=== PATIENT | male | born 1935 | race Caucasian/White ===

== ENCOUNTER 2017-04-27 19:25 | Inpatient (IN) ==
[2017-04-27] MEDS ORDERED: FUROSEMIDE 100 MG/10 ML VIAL IV STA (19:35)
[2017-04-27] MEDS ORDERED: FUROSEMIDE 100 MG/10 ML VIAL ONE (19:37)
[2017-04-27 19:48] LABS: Basophils # 0.1 10*3/uL (0.0-0.2); Basophils % 0.6 % (0.0-0.8); Eosinophils # 0.1 10*3/uL (0.0-0.87); Eosinophils % 0.7 % (0.00-10.9); Hematocrit 38.1 VOL% (42.0-52.0); Hemoglobin 12.4 GM/DL (14.0-18.0); Immature Granulocytes % 0.7 %; Lymphocytes # 1.8 10*3/uL (1.4-4.0); Lymphocytes % 12.4 % (21.2-54.2); Mean Corpuscular HGB Conc 32.5 GM/DL (32-36); Mean Corpuscular Hemoglobin 29 PG (27-34); Mean Corpuscular Volume 88.6 FL (87-102); Mean Platelet Volume 9.5 FL (9.6-12.0); Monocytes # 0.7 10*3/uL (0.11-0.8); Monocytes % 4.8 % (1.7-12.7); Neutrophils # 11.7 10*3/uL (1.4-7.4); Neutrophils % 80.8 % (38.7-73.9); Platelet Count 226 T/CUMM (130-400); Red Cell Distribution Width 13.6 % (9.3-17.3); White Blood Count 14.5 T/CUMM (4-12)
--- NOTE | 2017-04-27 19:51 | XRay Report ---
Portable chest Date: 04/27/2017 Clinical history: Shortness of breath Comparison: 05/28/2015 Technique: Portable AP sitting chest Findings: The heart is borderline in size with prior median sternotomy. Chronic scarring in the lungs with progressive diffuse parenchymal findings especially at the lung bases. Stable mediastinum with degenerative changes. Impression: Status post median sternotomy with chronic scarring. Progressive atelectasis/edema/infiltration especially at the lung bases. PROCEDURE INTERPRETED AT [facility] DEPARTMENT OF RADIOLOGY Final Report Signed by: Dr. Annel Moore
[2017-04-27] MEDS ORDERED: ALBUTEROL 2.5 MG/3 ML NEB RESP TX SCH (20:00)
[2017-04-27] MEDS ORDERED: NITROGLYCERIN DRIP 50 MG/250 ML BOTTLE IV SCH (20:00)
[2017-04-27 20:12] LABS: Apearance,Urine CLEAR (Clear); Bacteria,Urine Occasional /HPF (Few); Bilirubin,Urine Negative (Negative); Blood, Urine Negative (Negative); Glucose,Urine (UA) >=500 mg/dL (Negative); Hyaline Casts,Urine 1 /LPF (0-3); Ketones,Urine Negative (Negative); Mucus,Urine Occasional /LPF (Occasional); Nitrite,Urine Negative (Negative); Protein,Urine 30 MG/DL; RBC,Urine 1 /HPF (0-4); Urine Color Yellow (Yellow); Urine Specific Gravity 1.021 (1.001-1.035); Urine Urobilinogen < 2.0 EU/DL (0.2-1.0); WBC,Urine 1 /HPF (0-6)
[2017-04-27 20:16] LABS: Albumin 3.2 G/DL (3.4-5.0); Bilirubin,Total 0.7 MG/DL (0.2-1.0); Calcium 9.3 MG/DL (8.5-10.1); Magnesium 2.3 MG/DL (1.8-2.4); Osmolality,Calculated 295.4 MOS/KG (273-304); Potassium 5.3 MMOL/L (3.5-5.1); Total Protein 6.6 G/DL (6.4-8.3)
[2017-04-27 20:25] LABS: Troponin I Only 0.054 NG/ML (0.00-0.045)
--- NOTE | 2017-04-27 20:56 | Emergency Department Note ---
I, Aby Byrnes, am scribing for, and in the presence of, Bryan Rivas MD 19: 43. IRob Kevin Lee, MD, personally performed the services described in this documentation, ascribed by Aby Byrnes in my presence, and it is both accurate and complete . 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 EMS states pt was seen at [facility] this morning, instead of brought to [facility], for SOB and diaphoresis. EMS notes his BP improved from 234/110 and tachycardic in 120s to 160/60 and 97 O2 sat of 97 on 2L. Pt has developed a cough since arrival of EMS. 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 Pt states he suddenly started having SOB and "sweating like a mule." Pt's BP is 110/88 in ED with tachycardic of 110. PMHx of NIDDM. Pt's CXR at [facility] states as is: 1. Pulmonary venous hypertensive changes could be considered. 2. The appearance of the lung parenchyma suggests little change in comparison. Nonspecific increase in interstitial markings is noted within the lung bases. Onset (ago): hour(s) Consistency: constant Severity: mild, moderate Severity scale (1-10): 4 Quality: fullness Allergies/Adverse Reactions: Allergies Allergy/AdvReac Type Severity Reaction Status Date / Time lorazepam [From Ativan] Allergy Mild Hallucinati Verified 07/01/15 09:42 ng Penicillins Allergy Mild Swelling Verified 07/01/15 09:42 of Lip/Tongue/Throat Home Medications: Home Medications Medication Instructions Recorded Confirmed Type Metformin HCl [Metformin HCl ER] 1,000 mg PO BIDAC 03/04/15 04/27/17 History Aspirin [Ecotrin] 325 mg PO DAILY #1 tablet. 03/26/15 04/27/17 Rx Nitroglycerin [Nitroglycerin SL 0.4 mg SL PRN PRN #25 tab.subl 03/26/15 Rx Tab] Sertraline [Zoloft] 50 mg PO BEDTIME tablet 03/26/15 04/27/17 Rx Multivitamin [Multivitamins] 1 tablet PO DAILY 04/13/15 04/27/17 History Furosemide Tab [Lasix Tab] 40 mg PO DAILY 05/14/15 04/27/17 History Potassium Chloride Cap/Tab [K Dur] 20 meq PO DAILY 05/14/15 04/27/17 History Carvedilol [Coreg] 3.125 mg PO 0800,1700 06/26/15 04/27/17 History Clopidogrel [Plavix] 75 mg PO QOTHER DAY 06/26/15 04/27/17 History Acetaminophen Tab [Tylenol Tab] 1,000 mg PO Q4H 04/27/17 04/27/17 History Acetaminophen [Acetaminophen ER 650 mg PO TID 04/27/17 04/27/17 History Tab] Albuterol Neb [Proventil Neb] 2.5 mg RESP TX Q12H PRN 04/27/17 04/27/17 History Ascorbic Acid 500 mg PO DAILY 04/27/17 04/27/17 History Atorvastatin [Lipitor] 10 mg PO BEDTIME 04/27/17 04/27/17 History Captopril [Captopril] 6.25 mg PO BID 04/27/17 04/27/17 History Gabapentin [Gabapentin] 100 mg PO TID 04/27/17 04/27/17 History HYDROcodone/ACETAMIN 5-325 [[place] 1 tablet PO Q4H PRN 04/27/17 04/27/17 History 5-325] Insulin Glargine [Lantus] 36 unit SUBCUT 0600 04/27/17 04/27/17 History Magnesium Hydroxide Susp [Milk of 30 ml PO DAILY PRN 04/27/17 04/27/17 History Magnesia] Memantine [Namenda] 5 mg PO BID 04/27/17 04/27/17 History guaiFENesin LIQUID [Robitussin] 10 ml PO Q4H PRN 04/27/17 04/27/17 History Review of System - Review of System 12 point system: reviewed and no additional remarkable complaints except as stated - Review of System Constitutional: Present: diaphoresis. Absent: fever Respiratory: Present: cough, respiratory distress (SOB). Absent: wheezing Cardiovascular: Absent: chest pain Gastrointestinal: Absent: abdominal pain, nausea, vomiting Musculoskeletal: Absent: arm pain, neck pain Skin: Absent: rash Neurological: Absent: headache Medical,Surgical,& Family Hx - Medical History Cardio: History of: CHF, CAD, Hypertension, [place] (02/24/2015), Cardiovascular Problems Neurology: No history of: Seizures HEENT: History of: Dental Problems (upper denture) Endocrine: History of: Diabetes Mellitus (NIDDM) (takes metformin and glipizide. ) Respiratory: History of: Pneumonia (02/2015) Genitourinary: History of: Prostate Problems Musculoskeletal: History of: Amputation (right below knee amputations), Musculoskeletal Problems Reproductive: Reports: Reproductive Cancer (prostate cancer) Other: History of: Cancer (prostate cancer), MRSA (2014) - Surgical History Cardiac Surgeries: Sugical HX of: Cardiac Catheterization, Cardiac Surgery Neurologic Surgeries: Patient denies: Neurologic Surgery Reproductive Surgeries: Surgical HX of;: Genitourinary Surgery, Prostate Surgery (2009) Orthopedic Surgeries: Surgical HX of;: Orthopedic Surgery (Right knee surgery x 2) - Family History Family History: Reports;: Family Stroke (dad age 59) Comment Only: Family Diabetes (both maternal and paternal Gparents) - Social History Smoking Status: Former smoker Exam Vital Signs: Vital Signs Temperature 98.4 F 04/27/17 19:26 Pulse Rate 110 H 04/27/17 19:26 Respiratory Rate 22 04/27/17 19:26 Blood Pressure 168/78 04/27/17 19:26 O2 Sat by Pulse Oximetry 89 L 04/27/17 19:26 - General General appearance: alert, in distress (secondary to SOB) - Head Head exam: Present: atraumatic, normocephalic - Eye Eye exam: Present: PERRL, EOMI - ENT ENT exam: Present: mucous membranes moist. Absent: mucous membranes dry - Neck Neck exam: Present: full ROM - Chest Chest inspection: Present: symmetric chest wall rise. Absent: tenderness - Respiratory Respiratory exam: Present: rales, respiratory distress (mild to moderate), wheezes - Cardiovascular Cardiovascular exam: Present: tachycardia, normal heart sounds - Abdominal Exam Abdominal exam: Present: soft. Absent: tenderness - Extremities Exam Extremities exam: Absent: full ROM (bilateral BKA) - Neurological Exam Neurological exam: Present: alert, oriented X3, CN II-XII intact - Psychiatric Psychiatric exam: Present: normal affect, normal mood - Skin Skin exam: Present: warm, diaphoresis Course Course Narrative: pt improved with nebs. likely mucous plugging will admit for pulm toilet and IV abx Results - Labs CBC & BMP: 04/27/17 19:36 04/27/17 19:36 Lab Results: I have reviewed the patients labs Labs: Laboratory Tests 04/27/17 04/27/17 19:35 19:36 WBC 14.5 H RBC 4.30 Hgb 12.4 L Hct 38.1 L Plt Count 226 MPV 9.5 L Neut % (Auto) 80.8 H Lymph % (Auto) 12.4 L Neut # (Auto) 11.7 H Urine Color Yellow Urine Appearance Clear Urine pH 5.0 Ur Specific [place] 1.021 Urine Protein 30 Urine Glucose (UA) >=500 Urine Blood Negative Urine Nitrate Negative Urine Urobilinogen < 2.0 H Urine Leukocytes Negative Urine RBC 1 Urine WBC 1 Urine Bacteria Occasional Hyaline Casts 1 Urine Mucus Occasional Laboratory Tests 04/27/17 04/27/17 19:36 19:36 Sodium 140 Potassium 5.3 H Chloride 105 Carbon Dioxide 28 BUN 19 H GFR Calculation 90 BUN/Creatinine Ratio 23.00 H Glucose 374 H AST 10 Troponin I 0.054 H B-Natriuretic Peptide 765 H Albumin 3.2 L Albumin/Globulin Ratio 0.9 L - Diagnostic Findings Procedure: Chest x-ray: report reviewed by me (S/P median sternotomy with chronic scarring. Progressive atelectasis/edema/infiltration especially at the lung bases.) Disposition Clinical Impression: Pneumonia, Hypoxia, CHF (congestive heart failure), Mucus plugging of bronchi, SOB (shortness of breath) Case discussed with: patient, patient's family Disposition: Still a Patient Condition: Guarded
--- NOTE | 2017-04-27 20:59 | Hospitalist History & Physical ---
Assessment and Plan (1) Acute respiratory failure Status: Acute Assessment and plan: Chest CT per [place] shows bilateral upper lobe infiltrates with bilateral lower lobe mucus plugging. Patient has a history of COPD and CHF both of which I believe are exacerbated at this time. Blood cultures 2 will be drawn and Levaquin will be administered. Dr. Akers consulted with possible bronc in a.m. Current Visit: Yes (2) COPD exacerbation Status: Acute Assessment and plan: Duonebs, steroids, Levaquin Current Visit: Yes (3) Pneumonia of both upper lobes Status: Acute Assessment and plan: Per chest CT, Levaquin IV Current Visit: Yes (4) CHF exacerbation Status: Acute Assessment and plan: Lasix 40 mg IV every 12, echocardiogram in a.m. Current Visit: Yes (5) Cholelithiasis Status: Acute Assessment and plan: Gallbladder chest CT shows cholelithiasis with gallbladder wall thickening. Patient is relatively asymptomatic. Current Visit: Yes (6) Diabetes Status: Acute Assessment and plan: Hemoglobin A1c, insulin sliding scale, restart Lantus Current Visit: No Qualifiers: Diabetes mellitus type: type 2 Diabetes mellitus complication status: with circulatory complication Diabetes mellitus complication detail: with other circulatory complications Qualified Code(s): E11.59 - Type 2 diabetes mellitus with other circulatory complications (7) Hypertension Status: Chronic Assessment and plan: Blood pressure elevated in the emergency room restart Coreg hold WOOD inhibitor due to elevated potassium Current Visit: No (8) Ischemic cardiomyopathy Status: Acute Assessment and plan: Echocardiogram EF of 40% with diastolic dysfunction from April 2015, repeat echo in a.m. Current Visit: No History of Present Illness Chief complaint: sob History of present illness: Mr. Garcia is a 81 year old male brought to ED by EMS from [facility] for further evaluation of severe SOB beginning today. He was seen at [place] this morning for SOB and sent back to the nursing. Chest CT from [place] hospital shows ground glass appearance suggestive of an infection bilateral in the upper lobes. Also shows subsegmental bronchi of the lower lobes demonstrate wall thickening and areas of mucous plugging which are more prevalent on the right. Patient also has small bilateral pleural effusions. Patient is wheezing and has received a breathing treatment and lasix in the ER. Discussed his CODE STATUS and he wishes to be a full code at this time. Dr. Akers will see him first thing in the morning. He asked for him to remain n.p.o. after midnight. EMS notes his BP improved from 234/110 and tachycardic in 120s to 160/60 and 97 O2 sat of 97 on 2L. Home Medications Medication Instructions Recorded Confirmed Type Metformin HCl [Metformin HCl ER] 1,000 mg PO BIDAC 03/04/15 04/27/17 History Aspirin [Ecotrin] 325 mg PO DAILY #1 tablet. 03/26/15 04/27/17 Rx Nitroglycerin [Nitroglycerin SL 0.4 mg SL PRN PRN #25 tab.subl 03/26/15 Rx Tab] Sertraline [Zoloft] 50 mg PO BEDTIME tablet 03/26/15 04/27/17 Rx Multivitamin [Multivitamins] 1 tablet PO DAILY 04/13/15 04/27/17 History Furosemide Tab [Lasix Tab] 40 mg PO DAILY 05/14/15 04/27/17 History Potassium Chloride Cap/Tab [K Dur] 20 meq PO DAILY 05/14/15 04/27/17 History Carvedilol [Coreg] 3.125 mg PO 0800,1700 06/26/15 04/27/17 History Clopidogrel [Plavix] 75 mg PO QOTHER DAY 06/26/15 04/27/17 History Acetaminophen Tab [Tylenol Tab] 1,000 mg PO Q4H 04/27/17 04/27/17 History Acetaminophen [Acetaminophen ER 650 mg PO TID 04/27/17 04/27/17 History Tab] Albuterol Neb [Proventil Neb] 2.5 mg RESP TX Q12H PRN 04/27/17 04/27/17 History Ascorbic Acid 500 mg PO DAILY 04/27/17 04/27/17 History Atorvastatin [Lipitor] 10 mg PO BEDTIME 04/27/17 04/27/17 History Captopril [Captopril] 6.25 mg PO BID 04/27/17 04/27/17 History Gabapentin [Gabapentin] 100 mg PO TID 04/27/17 04/27/17 History HYDROcodone/ACETAMIN 5-325 [[place] 1 tablet PO Q4H PRN 04/27/17 04/27/17 History 5-325] Insulin Glargine [Lantus] 36 unit SUBCUT 0600 04/27/17 04/27/17 History Magnesium Hydroxide Susp [Milk of 30 ml PO DAILY PRN 04/27/17 04/27/17 History Magnesia] Memantine [Namenda] 5 mg PO BID 04/27/17 04/27/17 History guaiFENesin LIQUID [Robitussin] 10 ml PO Q4H PRN 04/27/17 04/27/17 History Allergies Allergy/AdvReac Type Severity Reaction Status Date / Time lorazepam [From Ativan] Allergy Mild Hallucinati Verified 07/01/15 09:42 ng Penicillins Allergy Mild Swelling Verified 07/01/15 09:42 of Lip/Tongue/Throat Medical,Surgical,& Family Hx - Medical History Cardio: History of: CHF, CAD, Hypertension, [place] (02/24/2015), Cardiovascular Problems Neurology: No history of: Seizures HEENT: History of: Dental Problems (upper denture) Endocrine: History of: Diabetes Mellitus (NIDDM) (takes metformin and glipizide. ) Respiratory: History of: Pneumonia (02/2015) Genitourinary: History of: Prostate Problems Musculoskeletal: History of: Amputation (right below knee amputations), Musculoskeletal Problems Reproductive: Reports: Reproductive Cancer (prostate cancer) Other: History of: Cancer (prostate cancer), MRSA (2014) - Surgical History Cardiac Surgeries: Sugical HX of: Cardiac Catheterization, Cardiac Surgery Neurologic Surgeries: Patient denies: Neurologic Surgery Reproductive Surgeries: Surgical HX of;: Genitourinary Surgery, Prostate Surgery (2009) Orthopedic Surgeries: Surgical HX of;: Orthopedic Surgery (Right knee surgery x 2) - Family History Family History: Reports;: Family Stroke (dad age 59) Comment Only: Family Diabetes (both maternal and paternal Gparents) - Social History Smoking Status: Former smoker Frequency of Alcohol Use: None Type of Drug Use: None Marital Status: Lives With:: long term Functional capacity: wheelchair bound - Constitutional Constitutional: Present: fatigue. Absent: fever(s), headache(s), weakness - EENT Eyes: Absent: blurry vision, diplopia Ears: Present: decreased hearing. Absent: ear discharge Nose, mouth and throat: Absent: headache(s), sore throat - Cardiovascular Cardiovascular: Present: dyspnea, dyspnea on exertion, edema. Absent: chest pain at rest, chest pain with activity - Respiratory Respiratory: Present: cough, dyspnea, dyspnea on exertion, wheezing, change in phlegm color - Gastrointestinal Gastrointestinal: Present: nausea. Absent: constipation, diarrhea, vomiting - Genitourinary Genitourinary: Absent: difficulty urinating, dysuria - Neurological Neurological: Absent: confusion, headache(s), syncope - Psychiatric Psychiatric: Present: depression. Absent: anxiety - Endocrine Endocrine: Present: cold intolerance, fatigue. Absent: heat intolerance - Hematologic/Lymphatic Hematologic/Lymphatic: Absent: easy bleeding, easy bruising Exam - Constitutional Vitals: Period Temp Pulse Resp BP Sys/Hernández Pulse Ox Last 24 Hr 98.4 F-98.4 F 110-110 22-22 168-168/78-78 89 General appearance: normal weight, severe distress - Head Head exam: Present: normal inspection, normocephalic - Eye Eye exam: Present: EOMI. Absent: scleral icterus Pupils: Present: ISIDRA, normal accommodation - ENT ENT exam: Present: normal exam, normal external ear exam - Neck Neck exam: Absent: lymphadenopathy, thyromegaly - Respiratory Respiratory exam: Present: decreased breath sounds, prolonged expiratory phase, wheezes. Absent: rhonchi - Cardiovascular Cardiovascular exam: Present: systolic murmur, tachycardia - GI/Abdominal GI/Abdominal exam: Present: normal bowel sounds, soft. Absent: tenderness - Extremities Exam Extremities exam: Present: edema (Bilateral AKA) - Neurological Exam Neurological exam: Present: alert, oriented X3, reflexes normal. Absent: motor sensory deficit - Psychiatric Psychiatric exam: Present: normal affect, normal mood - Skin Skin exam: Present: normal color, warm Results - Labs CBC & BMP: 04/27/17 19:36 04/27/17 19:36 Lab Results: I have reviewed the past 24 hour labs - EKG EKG shows: tachycardia, sinus rhythm - Impressions ST depression in the lateral leads - Diagnostic Findings Procedure: Chest x-ray: report reviewed by me (Pulmonary edema), CT - chest: report reviewed by me (Bilateral groundglass appearance in the upper lobes with bilateral lower lobe mucus plugging. Cholelithiasis with gallbladder bladder wall thickening, bilateral small pleural effusions granulomas throughout the liver. Her rash)
[2017-04-27] MEDS ORDERED: ONDANSETRON 4 MG/2 ML VIAL IV PRN (21:32)
[2017-04-27] MEDS ORDERED: ACETAMINOPHEN 325 MG TABLET PO PRN (21:32)
[2017-04-27] MEDS ORDERED: DEXTROSE 50% 25 GM/50 ML SYRINGE IV PRN (21:32)
[2017-04-27] MEDS ORDERED: GLUCAGON 1 MG VIAL IM PRN (21:32)
[2017-04-27] MEDS ORDERED: MAGNESIUM HYDROXIDE SUSP 30 ML UDCUP PO PRN (21:32)
[2017-04-27] MEDS ORDERED: ALBUTEROL 2.5 MG/3 ML NEB RESP TX PRN (21:32)
[2017-04-27] MEDS: INSULIN LISPRO 100 UNIT/ML SUBCUT SCH (22:07)
[2017-04-27] MEDS: MEMANTINE 5 MG TABLET PO SCH (22:07)
[2017-04-27] MEDS: CARVEDILOL 6.25 MG TABLET PO SCH (22:07)
[2017-04-27] MEDS: ATORVASTATIN 10 MG TABLET PO SCH (22:07)
[2017-04-27] MEDS: methylPREDNISolone SOD SUC 40 MG/1 ML VIAL IV SCH (22:08)
[2017-04-27] MEDS: SERTRALINE 50 MG TABLET PO SCH (22:08)
[2017-04-27] MEDS: GABAPENTIN 100 MG CAPSULE PO SCH (22:08)
[2017-04-27] MEDS: ENOXAPARIN 40 MG/0.4 ML SYRINGE SUBCUT SCH (22:08)
[2017-04-27] MEDS: LEVOFLOXACIN INJ 750 MG in PREMIX 1 EACH IV SCH (22:09)
[2017-04-27 22:21] LABS: ABG Base Excess -3.7 MMOL/L (-2.5-2.5); ABG HCO3 21.3 MMOL/L (20-26); ABG PCO2 40.9 MM HG (35-48); ABG PH 7.337 (7.35-7.45); ABG PO2 84.8 MM HG (80-95); ABG TCO2 19.8 MMOL/L (23-27)
[2017-04-27] MEDS: ALBUTEROL/IPRATROPIUM 3 ML NEB RESP TX SCH (23:22)
[2017-04-28] MEDS ORDERED: INSULIN LISPRO 100 UNIT/ML SUBCUT ONE (00:32)
[2017-04-28] MEDS: ALBUTEROL/IPRATROPIUM 3 ML NEB RESP TX SCH ×6 (02:31→23:29)
[2017-04-28] MEDS: methylPREDNISolone SOD SUC 40 MG/1 ML VIAL IV SCH ×4 (04:47→21:19)
[2017-04-28] MEDS ORDERED: INSULIN GLARGINE 100 UNIT/ML SUBCUT SCH (06:00)
--- NOTE | 2017-04-28 06:21 | Pulmonology Consult Note ---
Assessment and Plan (1) CHF exacerbation Status: Acute Assessment and plan: Patient has elevated BNP in the 700s. Slightly increased interstitial edema. Needs to be diuresed. Current Visit: Yes (2) COPD exacerbation Status: Acute Assessment and plan: ABGs were acceptable. Patient is not in distress. Rather than bronchoscopy I think he would do better to have mucolytics and steroids as well as bronchodilators and antibiotics. Current Visit: Yes (3) Mucus plugging of bronchi Status: Acute Assessment and plan: We will try him on mucolytic steroids bronchodilators and antibiotics. Can have bronchoscopy if he does not improve with that. He is not in distress today. Current Visit: Yes (4) Pneumonia Status: Acute Assessment and plan: Empiric antibiotics. Current Visit: Yes (5) CAD (coronary artery disease) of artery bypass graft Status: Chronic Assessment and plan: Has an ischemic cardiomyopathy with ejection fraction 40% on previous echo. BNP is elevated. Current Visit: No Qualifiers: [place] vs. transplanted heart: [place] heart Associated angina: without angina pectoris Qualified Code(s): I25.810 - Atherosclerosis of coronary artery bypass graft(s) without angina pectoris History of Present Illness Chief complaint: Shortness of breath, fever History of present illness: Mr. Garcia is a 81 year old male who lives in a [facility] in [place]. He had increased fever and chills a couple times and a mild cough. She is not coughing anything up. Apparently he was sent to the ER at [facility] yesterday and had a CT scan that indicated some mucus plugging in his lower lobes. He was sent back to the [facility] and then sent here where he was admitted. Dr. Nixon has seen him in the past. He has had bilateral below the knee amputations. He does have COPD and an ischemic cardiomyopathy. Home Medications Medication Instructions Recorded Confirmed Type Metformin HCl [Metformin HCl ER] 1,000 mg PO BIDAC 03/04/15 04/27/17 History Aspirin [Ecotrin] 325 mg PO DAILY #1 tablet. 03/26/15 04/27/17 Rx Nitroglycerin [Nitroglycerin SL 0.4 mg SL PRN PRN #25 tab.subl 03/26/15 Rx Tab] Sertraline [Zoloft] 50 mg PO BEDTIME tablet 03/26/15 04/27/17 Rx Multivitamin [Multivitamins] 1 tablet PO DAILY 04/13/15 04/27/17 History Furosemide Tab [Lasix Tab] 40 mg PO DAILY 05/14/15 04/27/17 History Potassium Chloride Cap/Tab [K Dur] 20 meq PO DAILY 05/14/15 04/27/17 History Carvedilol [Coreg] 3.125 mg PO 0800,1700 06/26/15 04/27/17 History Clopidogrel [Plavix] 75 mg PO QOTHER DAY 06/26/15 04/27/17 History Acetaminophen Tab [Tylenol Tab] 1,000 mg PO Q4H 04/27/17 04/27/17 History Acetaminophen [Acetaminophen ER 650 mg PO TID 04/27/17 04/27/17 History Tab] Albuterol Neb [Proventil Neb] 2.5 mg RESP TX Q12H PRN 04/27/17 04/27/17 History Ascorbic Acid 500 mg PO DAILY 04/27/17 04/27/17 History Atorvastatin [Lipitor] 10 mg PO BEDTIME 04/27/17 04/27/17 History Captopril [Captopril] 6.25 mg PO BID 04/27/17 04/27/17 History Gabapentin [Gabapentin] 100 mg PO TID 04/27/17 04/27/17 History HYDROcodone/ACETAMIN 5-325 [[place] 1 tablet PO Q4H PRN 04/27/17 04/27/17 History 5-325] Insulin Glargine [Lantus] 36 unit SUBCUT 0600 04/27/17 04/27/17 History Magnesium Hydroxide Susp [Milk of 30 ml PO DAILY PRN 04/27/17 04/27/17 History Magnesia] Memantine [Namenda] 5 mg PO BID 04/27/17 04/27/17 History guaiFENesin LIQUID [Robitussin] 10 ml PO Q4H PRN 04/27/17 04/27/17 History Allergies Allergy/AdvReac Type Severity Reaction Status Date / Time lorazepam [From Ativan] Allergy Mild Hallucinati Verified 07/01/15 09:42 ng Penicillins Allergy Mild Swelling Verified 07/01/15 09:42 of Lip/Tongue/Throat 12 point system: reviewed and no additional remarkable complaints except as stated - Constitutional Constitutional: Present: chills, fever(s) - Cardiovascular Cardiovascular: Present: dyspnea, dyspnea on exertion - Respiratory Respiratory: Present: cough, dyspnea, dyspnea on exertion, wheezing Exam (Pulmonay) H&P - Constitutional Vitals: Period Temp Pulse Resp BP Sys/Hernández Pulse Ox Last 24 Hr 97.5 F-98.4 F 81-110 10-24 100-171/37-96 89-100 Exam: Patient is afebrile. O2 sat in the mid 90s on nasal oxygen. Pupils react to light. Throat is clear. Neck supple no bruits. Chest reveals a few rhonchi equal breath sounds is not tight. Heart normal rate rhythm no murmurs. Abdomen soft nontender no masses. Extremities bilateral below the knee amputation. No edema. Medical,Surgical,& Family Hx - Medical History Cardio: History of: CHF, CAD, Hypertension, [place] (02/24/2015), Cardiovascular Problems Neurology: History of: Cerebrovascular Accident (a year or two ago) No history of: Seizures HEENT: History of: Dental Problems (upper denture) Endocrine: History of: Diabetes Mellitus (NIDDM) (takes metformin and glipizide. ) Respiratory: History of: Pneumonia (02/2015) Genitourinary: History of: Prostate Problems Musculoskeletal: History of: Amputation (bilat below knee amputations), Musculoskeletal Problems Reproductive: Reports: Reproductive Cancer (prostate cancer) Other: History of: Cancer (prostate cancer), MRSA (2014) - Surgical History Cardiac Surgeries: Sugical HX of: Cardiac Catheterization, Cardiac Surgery (2016 ) Neurologic Surgeries: Patient denies: Neurologic Surgery Reproductive Surgeries: Surgical HX of;: Genitourinary Surgery, Prostate Surgery (2010 prostatectomy) Orthopedic Surgeries: Surgical HX of;: Orthopedic Surgery (Right knee surgery x 2) - Family History Family History: Reports;: Family Stroke (dad age 59) Comment Only: Family Diabetes (both maternal and paternal Gparents) - Social History Smoking Status: Former smoker Frequency of Alcohol Use: None Type of Drug Use: None Results - Labs CBC & BMP: 04/27/17 19:36 04/27/17 19:36 Lab Results: I have reviewed the past 24 hour labs - Diagnostic Findings Procedure: Chest x-ray: image reviewed by me (Increased interstitial markings compared to chest x-ray here from 2 years ago.)
[2017-04-28 06:46] LABS: Basophils % 0.2 % (0.0-0.8); Hematocrit 33.8 VOL% (42.0-52.0); Immature Granulocytes % 0.6 %; Immature Granulocytes Absolute 0.05 #; Lymphocytes # 0.9 10*3/uL (1.4-4.0); Lymphocytes % 10.6 % (21.2-54.2); Mean Corpuscular HGB Conc 32.5 GM/DL (32-36); Mean Corpuscular Hemoglobin 28 PG (27-34); Mean Corpuscular Volume 87.3 FL (87-102); Monocytes # 0.4 10*3/uL (0.11-0.8); Neutrophils # 7.3 10*3/uL (1.4-7.4); Neutrophils % 84.6 % (38.7-73.9); Platelet Count 185 T/CUMM (130-400); Red Blood Count 3.87 MC/CUMM (3.8-5.5); Red Cell Distribution Width 13.6 % (9.3-17.3); White Blood Count 8.7 T/CUMM (4-12)
[2017-04-28] MEDS: DORNASE ALFA 2.5 MG/2.5 ML VIAL RESP TX SCH ×2 (07:13→19:22)
[2017-04-28 07:17] LABS: Calcium 9.2 MG/DL (8.5-10.1); Osmolality,Calculated 292.4 MOS/KG (273-304); Potassium 4.1 MMOL/L (3.5-5.1); Risk Ratio 3.18; VLDL CHOLESTEROL 13.6 MG/DL
--- NOTE | 2017-04-28 07:57 | EKG Report ---
Stationary ECG Study 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
[2017-04-28] MEDS: MEMANTINE 5 MG TABLET PO SCH ×2 (08:45→21:18)
[2017-04-28] MEDS: GABAPENTIN 100 MG CAPSULE PO SCH ×3 (08:45→21:18)
[2017-04-28] MEDS: CARVEDILOL 6.25 MG TABLET PO SCH ×2 (08:45→21:18)
[2017-04-28] MEDS: FUROSEMIDE 40 MG/4 ML VIAL IV SCH ×2 (08:45→16:09)
[2017-04-28] MEDS: ASPIRIN EC 325 MG TABLET PO SCH (08:45)
[2017-04-28] MEDS: INSULIN LISPRO 100 UNIT/ML SUBCUT SCH ×4 (08:46→21:17)
--- NOTE | 2017-04-28 11:16 | Hospitalist Progress Note ---
Hospitalist: Subjective Interval history: 81 year old WM who lives in a senior care in [place] was admitted with shortness of breath due to pneumonia and congestive heart failure. He had increased fever and chills and cough. Apparently he was sent to the ER at [facility] yesterday and had a CT scan that indicated some mucus plugging in his lower lobes. He was sent back to the senior care and then sent here where he was admitted. He reports improved breathing today. Exam - Constitutional Vitals: Period Temp Pulse Resp BP Sys/Hernández Pulse Ox Last 24 Hr 97 F-98.4 F 81-110 10-24 100-171/37-98 89-100 Exam: General: No Acute Distress HEENT: Normocephalic, atraumatic, Extra ocular movements intact Neck: Supple, No JVD Chest: Decreased breath sounds and mild rhonchi CV: S1 + S2 audible with ESM LSE, gallop or rub Abd: soft, NT, Non-distended, BS + Ext: Bilateral AKA Skin: No purpura, bruising or rash Rheumatologic: No Joint deformities Neurologic: no gross sensory deficits Results - Labs CBC & BMP: 04/28/17 05:51 04/28/17 05:51 - Impressions Assessment and Plan (1) Acute hypoxemic respiratory failure Status: Acute Assessment and plan: Chest CT per [facility] shows bilateral upper lobe infiltrates with bilateral lower lobe mucus plugging. He is improving with antibiotics and nebulizers, he is also on Pulmozyme and mucolytics Current Visit: Yes (2) Acute on chronic COPD exacerbation Status: Acute Assessment and plan: Continue Duonebs, steroids, Levaquin. Appreciate pulmonary following. Current Visit: Yes (3) Pneumonia of both upper lobes, present on admission Status: Acute Assessment and plan: Per chest CT, Levaquin IV Current Visit: Yes (4) Acute on chronic systolic CHF exacerbation Status: Acute Assessment and plan: Lasix 40 mg IV every 12, last EF was 40% , follow-up repeat echocardiogram Current Visit: Yes (5) Cholelithiasis, asymptomatic Status: Acute Assessment and plan: Gallbladder chest CT shows cholelithiasis with gallbladder wall thickening. Patient is relatively asymptomatic. Current Visit: Yes (6) Diabetes-II, uncontrolled Status: Acute Assessment and plan: Hemoglobin A1c, insulin sliding scale, continue Lantus. Increasing Lantus dose as he is hyperglycemic due to steroids Current Visit: No Qualifiers: Diabetes mellitus type: type 2 Diabetes mellitus complication status: with circulatory complication Diabetes mellitus complication detail: with other circulatory complications Qualified Code(s): E11.59 - Type 2 diabetes mellitus with other circulatory complications (7) Hypertension, Ess Status: Chronic Assessment and plan: Blood pressure elevated in the emergency room restart Coreg, holding WOOD inhibitor due to hyperkalemia Current Visit: No (8) Ischemic cardiomyopathy Status: Acute Assessment and plan: Echocardiogram EF of 40% with diastolic dysfunction from April 2015, follow-up repeat echo Current Visit: No
[2017-04-28] MEDS: SERTRALINE 50 MG TABLET PO SCH (21:18)
[2017-04-28] MEDS: ATORVASTATIN 10 MG TABLET PO SCH (21:18)
[2017-04-28] MEDS: LEVOFLOXACIN INJ 750 MG in PREMIX 1 EACH IV SCH (21:19)
[2017-04-28] MEDS: ENOXAPARIN 40 MG/0.4 ML SYRINGE SUBCUT SCH (21:19)
--- NOTE | 2017-04-28 22:10 | ECHO Report ---
Jon Garcia Exam Date: 04/28/2017 08:49 Referring Physician: Technologist: Melissa Cortez Age: 81 Ht (in): 67 Wt (lb): 160 Gender: M Exam Location: [facility] Echo Indications: acute resp. failure, COPD, pneumonia, cholelithiasis, NIDDM, HTN, CHF BP: 149 / 65 HR: 75 Rhythm: Sinus Technical Quality: Good IMPRESSIONS Mild concentric left ventricular hypertrophy with diastolic dysfunction. Left ventricular ejection fraction is estimated at 20- 30 %. The septum seems to be moving less well than the other hammonds. The right atrium is mildly enlarged. Moderate LAE. Mild mitral valve regurgitation. Mild aortic valve sclerosis without stenosis or regurgitation. Trace tricuspid valve regurgitation. Trace pulmonary valve regurgitation. MEASUREMENTS (Male / Female) Normal Values 2D ECHO LV Diastolic Diameter PLAX 5.3 cm 4.2 - 5.9 / 3.9 - 5.3 cm LV Systolic Diameter PLAX 3.8 cm LV Fractional Shortening PLAX 29.2 % IVS Diastolic Thickness 1.2 cm 0.6 - 1.0 / 0.6 - 0.9 cm LVPW Diastolic Thickness 1.2 cm 0.6 - 1.0 / 0.6 - 0.9 cm Aortic Root Diameter 2.5 cm LA Systolic Diameter LX 4.4 cm 3.0 - 4.0 / 2.7 - 3.8 cm FINDINGS Left Ventricle Normal left ventricular cavity size. Mild concentric left ventricular hypertrophy with diastolic dysfunction. Left ventricular ejection fraction is estimated at20- 30 %. The septum seems to be moving less well than the other hammonds. Right Ventricle Normal right ventricular size. Right Atrium The right atrium is mildly enlarged. Left Atrium Moderate LAE Mitral Valve Morphologically normal mitral valve. Mild mitral valve regurgitation. Aortic Valve Mild aortic valve sclerosis without stenosis or regurgitation. Tricuspid Valve Morphologically normal tricuspid valve. Trace tricuspid valve regurgitation. Pulmonic Valve Morphologically normal pulmonic valve. Trace pulmonary valve regurgitation. Pericardium No pericardial effusion. Aorta Normal size aortic root and proximal ascending aorta. Abdulaziz Valentine MD (Electronically Signed) Final Date: 28 April 2017 22:10
[2017-04-29] MEDS: methylPREDNISolone SOD SUC 40 MG/1 ML VIAL IV SCH ×2 (04:00→09:33)
[2017-04-29 04:02] LABS: Basophils % 0.1 % (0.0-0.8); Hematocrit 32.8 VOL% (42.0-52.0); Hemoglobin 10.7 GM/DL (14.0-18.0); Immature Granulocytes Absolute 0.13 #; Lymphocytes # 1.2 10*3/uL (1.4-4.0); Lymphocytes % 9.4 % (21.2-54.2); Mean Corpuscular HGB Conc 32.6 GM/DL (32-36); Mean Corpuscular Hemoglobin 28 PG (27-34); Mean Corpuscular Volume 86.3 FL (87-102); Mean Platelet Volume 9.8 FL (9.6-12.0); Monocytes # 0.6 10*3/uL (0.11-0.8); Monocytes % 4.4 % (1.7-12.7); Neutrophils # 10.8 10*3/uL (1.4-7.4); Neutrophils % 85.1 % (38.7-73.9); Platelet Count 189 T/CUMM (130-400); Red Cell Distribution Width 13.3 % (9.3-17.3); White Blood Count 12.7 T/CUMM (4-12)
[2017-04-29] MEDS: ALBUTEROL/IPRATROPIUM 3 ML NEB RESP TX SCH ×5 (04:05→19:37)
[2017-04-29 04:25] LABS: Calcium 9.2 MG/DL (8.5-10.1); Osmolality,Calculated 291.8 MOS/KG (273-304); Potassium 4.3 MMOL/L (3.5-5.1)
[2017-04-29] MEDS: INSULIN GLARGINE 100 UNIT/ML SUBCUT SCH (06:36)
[2017-04-29] MEDS: DORNASE ALFA 2.5 MG/2.5 ML VIAL RESP TX SCH ×2 (07:46→19:44)
[2017-04-29] MEDS: GABAPENTIN 100 MG CAPSULE PO SCH ×3 (09:32→21:21)
[2017-04-29] MEDS: ASPIRIN EC 325 MG TABLET PO SCH (09:32)
[2017-04-29] MEDS: CARVEDILOL 6.25 MG TABLET PO SCH ×2 (09:32→21:21)
[2017-04-29] MEDS: FUROSEMIDE 40 MG/4 ML VIAL IV SCH ×2 (09:33→16:35)
[2017-04-29] MEDS: CLOPIDOGREL 75 MG TABLET PO SCH (09:33)
[2017-04-29] MEDS: MEMANTINE 5 MG TABLET PO SCH ×2 (09:33→21:21)
[2017-04-29] MEDS: INSULIN LISPRO 100 UNIT/ML SUBCUT SCH ×4 (09:34→21:34)
--- NOTE | 2017-04-29 11:40 | Hospitalist Progress Note ---
Assessment and Plan (1) COPD exacerbation Status: Acute Assessment and plan: Steroids, duonebs, levaquin Current Visit: Yes (2) Pneumonia of both upper lobes Status: Acute Assessment and plan: Levaquin Pulmonary assisting Current Visit: Yes (3) SOB (shortness of breath) Status: Acute Assessment and plan: Improving Current Visit: Yes (4) CHF (congestive heart failure) Status: Acute Assessment and plan: Lasix 40 IV BID Will repeat CXR in am Current Visit: No Hospitalist: Subjective Interval history: No acute events overnight. Patient reported that he feels better. He has intermittent bouts of sob, preceded by diaphoresis. He believes that he is allergic to insulin. Exam - Constitutional Vitals: Period Temp Pulse Resp BP Sys/Hernández Pulse Ox Last 24 Hr 97.2 F-98.4 F 67-90 16-22 94-175/57-79 92-100 General appearance: over weight - Head Head exam: Present: normocephalic, atraumatic - Eye Eye exam: Present: EOMI Pupils: Present: ISIDRA - ENT ENT exam: Present: normal exam - Neck Neck exam: Present: normal inspection - Respiratory Respiratory exam: Present: clear to auscultation bilaterally. Absent: rhonchi, wheezes - Cardiovascular Cardiovascular exam: Present: regular rate and rhythm - GI/Abdominal GI/Abdominal exam: Present: normal bowel sounds, soft. Absent: tenderness, rebound - Extremities Exam Extremities exam: Present: normal inspection - Back Exam Back exam: Present: normal inspection - Neurological Exam Neurological exam: Present: alert, oriented X3 - Psychiatric Psychiatric exam: Present: normal affect, normal mood - Skin Skin exam: Present: warm, intact Results - Labs CBC & BMP: 04/29/17 03:42 04/29/17 03:42
--- NOTE | 2017-04-29 15:54 | Pulmonology Progress Note ---
Pulmonary - PN: Subj Interval history: Patient seen and examined, doing well. Reports that breathing is better. Denies cough. No pain. overall feels improved Exam (Progress Note) - Constitutional Vitals: Period Temp Pulse Resp BP Sys/Hernández Pulse Ox Last 24 Hr 97.2 F-98.4 F 67-89 16-22 124-175/57-101 92-98 General appearance: normal weight, no acute distress - Head Head exam: Present: normal inspection - Respiratory Respiratory exam: Present: clear to auscultation bilaterally - Cardiovascular Cardiovascular exam: Present: regular rate and rhythm - Extremities Exam Extremities exam: Present: other (bilateral BKA) Results - Labs CBC & BMP: 04/29/17 03:42 04/29/17 03:42 Lab Results: I have reviewed the past 24 hour labs Assessment and Plan (1) COPD exacerbation Status: Acute Assessment and plan: Patient clinically improving. Continue breathing treatments. Changing solumedrol to prednisone today. Continue to monitor Current Visit: Yes
[2017-04-29] MEDS: ATORVASTATIN 10 MG TABLET PO SCH (21:21)
[2017-04-29] MEDS: ENOXAPARIN 40 MG/0.4 ML SYRINGE SUBCUT SCH (21:22)
[2017-04-29] MEDS: SERTRALINE 50 MG TABLET PO SCH (21:35)
[2017-04-29] MEDS: LEVOFLOXACIN INJ 750 MG in PREMIX 1 EACH IV SCH (21:35)
[2017-04-30] MEDS: ALBUTEROL/IPRATROPIUM 3 ML NEB RESP TX SCH ×6 (00:01→19:42)
[2017-04-30 05:48] LABS: Basophils % 0.4 % (0.0-0.8); Eosinophils % 0.1 % (0.00-10.9); Hemoglobin 10.9 GM/DL (14.0-18.0); Immature Granulocytes % 0.7 %; Immature Granulocytes Absolute 0.08 #; Lymphocytes # 2.6 10*3/uL (1.4-4.0); Lymphocytes % 24.2 % (21.2-54.2); Mean Corpuscular Hemoglobin 28 PG (27-34); Mean Corpuscular Volume 85.7 FL (87-102); Mean Platelet Volume 9.7 FL (9.6-12.0); Monocytes # 0.9 10*3/uL (0.11-0.8); Monocytes % 7.8 % (1.7-12.7); Neutrophils # 7.3 10*3/uL (1.4-7.4); Neutrophils % 66.8 % (38.7-73.9); Platelet Count 187 T/CUMM (130-400); Red Blood Count 3.85 MC/CUMM (3.8-5.5); Red Cell Distribution Width 13.5 % (9.3-17.3); White Blood Count 10.9 T/CUMM (4-12)
[2017-04-30] MEDS: INSULIN GLARGINE 100 UNIT/ML SUBCUT SCH (06:13)
[2017-04-30 06:23] LABS: Calcium 9.2 MG/DL (8.5-10.1); Osmolality,Calculated 284.7 MOS/KG (273-304); Potassium 3.5 MMOL/L (3.5-5.1)
[2017-04-30] MEDS: DORNASE ALFA 2.5 MG/2.5 ML VIAL RESP TX SCH ×2 (07:03→19:50)
--- NOTE | 2017-04-30 09:13 | XRay Report ---
XR chest 1V Indication: CHF versus pneumonia. Chest one view: Comparison 04/27/2017. Heart size remains normal with stable median sternotomy wires. There is continued diffusely coarsened interstitial markings of the lungs with persistent bibasilar atelectasis or scarring. Lateral left lung base is more obscured. Impression: Increased obscuration lateral left lung base, concerning for developing pneumonia. Otherwise no change in underlying diffuse interstitial lung disease as described. PROCEDURE INTERPRETED AT [facility] DEPARTMENT OF RADIOLOGY Final Report Signed by: Luis Angel Harris M.D.
[2017-04-30] MEDS: INSULIN LISPRO 100 UNIT/ML SUBCUT SCH ×4 (09:23→21:40)
[2017-04-30] MEDS: GABAPENTIN 100 MG CAPSULE PO SCH ×3 (09:24→21:41)
[2017-04-30] MEDS: ASPIRIN EC 325 MG TABLET PO SCH (09:24)
[2017-04-30] MEDS: predniSONE 20 MG TABLET PO SCH (09:24)
[2017-04-30] MEDS: FUROSEMIDE 40 MG/4 ML VIAL IV SCH ×2 (09:24→16:52)
[2017-04-30] MEDS: CARVEDILOL 6.25 MG TABLET PO SCH ×2 (09:24→21:41)
[2017-04-30] MEDS: MEMANTINE 5 MG TABLET PO SCH ×2 (09:24→21:41)
--- NOTE | 2017-04-30 13:24 | Hospitalist Progress Note ---
Assessment and Plan (1) COPD exacerbation Status: Acute Assessment and plan: Steroids, duonebs, levaquin Current Visit: Yes (2) Pneumonia of both upper lobes Status: Acute Assessment and plan: Levaquin Pulmonary assisting Current Visit: Yes (3) SOB (shortness of breath) Status: Acute Assessment and plan: Improving Current Visit: Yes (4) CHF (congestive heart failure) Status: Acute Assessment and plan: Lasix 40 IV BID Current Visit: No Hospitalist: Subjective Interval history: No acute events overnight. Patient denies cough or sob. He feels better. Exam - Constitutional Vitals: Period Temp Pulse Resp BP Sys/Hernández Pulse Ox Last 24 Hr 96.9 F-98.7 F 70-88 18-20 104-157/54-78 92-100 General appearance: over weight - Head Head exam: Present: normocephalic, atraumatic - Eye Eye exam: Present: EOMI Pupils: Present: ISIDRA - ENT ENT exam: Present: normal exam - Neck Neck exam: Present: normal inspection - Respiratory Respiratory exam: Present: clear to auscultation bilaterally. Absent: rhonchi, wheezes - Cardiovascular Cardiovascular exam: Present: regular rate and rhythm - GI/Abdominal GI/Abdominal exam: Present: normal bowel sounds, soft. Absent: tenderness, rebound - Extremities Exam Extremities exam: Present: normal inspection - Back Exam Back exam: Present: normal inspection - Neurological Exam Neurological exam: Present: alert, oriented X3 - Psychiatric Psychiatric exam: Present: normal affect, normal mood - Skin Skin exam: Present: warm, intact Results - Labs CBC & BMP: 04/30/17 05:33 04/30/17 05:33
[2017-04-30] MEDS: LEVOFLOXACIN INJ 750 MG in PREMIX 1 EACH IV SCH (21:40)
[2017-04-30] MEDS: ATORVASTATIN 10 MG TABLET PO SCH (21:41)
[2017-04-30] MEDS: SERTRALINE 50 MG TABLET PO SCH (21:41)
[2017-04-30] MEDS: ENOXAPARIN 40 MG/0.4 ML SYRINGE SUBCUT SCH (21:42)
[2017-05-01] MEDS: ALBUTEROL/IPRATROPIUM 3 ML NEB RESP TX SCH ×7 (00:04→23:11)
[2017-05-01 06:41] LABS: Magnesium 2.7 MG/DL (1.8-2.4); Osmolality,Calculated 287.4 MOS/KG (273-304); Potassium 3.5 MMOL/L (3.5-5.1)
[2017-05-01] MEDS: INSULIN LISPRO 100 UNIT/ML SUBCUT SCH ×4 (08:49→21:39)
[2017-05-01] MEDS: INSULIN GLARGINE 100 UNIT/ML SUBCUT SCH (08:49)
[2017-05-01] MEDS: FUROSEMIDE 40 MG/4 ML VIAL IV SCH (09:03)
[2017-05-01] MEDS: predniSONE 20 MG TABLET PO SCH (09:04)
[2017-05-01] MEDS: CARVEDILOL 6.25 MG TABLET PO SCH ×2 (09:04→21:38)
[2017-05-01] MEDS: ASPIRIN EC 325 MG TABLET PO SCH (09:04)
[2017-05-01] MEDS: GABAPENTIN 100 MG CAPSULE PO SCH ×3 (09:04→21:38)
[2017-05-01] MEDS: MEMANTINE 5 MG TABLET PO SCH ×2 (09:04→21:38)
[2017-05-01] MEDS: CLOPIDOGREL 75 MG TABLET PO SCH (09:04)
[2017-05-01] MEDS ORDERED: INSULIN GLARGINE 100 UNIT/ML SUBCUT SCH (10:13)
--- NOTE | 2017-05-01 11:30 | Hospitalist Progress Note ---
Assessment and Plan (1) COPD exacerbation Status: Acute Assessment and plan: Steroids, duonebs, levaquin Current Visit: Yes (2) Pneumonia of both upper lobes Status: Acute Assessment and plan: Levaquin Pulmonary assisting Current Visit: Yes (3) SOB (shortness of breath) Status: Acute Assessment and plan: Improving Current Visit: Yes (4) CHF (congestive heart failure) Status: Acute Assessment and plan: Will change lasix to 40 po daily Current Visit: No Hospitalist: Subjective Interval history: No acute events overnight. Patient doing better. Denies sob. LE swelling is better. Will remove field today and plan for discharge tomorrow. Exam - Constitutional Vitals: Period Temp Pulse Resp BP Sys/Hernández Pulse Ox Last 24 Hr 96.6 F-98.4 F 58-84 18-20 110-136/51-68 92-100 General appearance: over weight - Head Head exam: Present: normocephalic, atraumatic - Eye Eye exam: Present: EOMI Pupils: Present: ISIDRA - ENT ENT exam: Present: normal exam - Neck Neck exam: Present: normal inspection - Respiratory Respiratory exam: Present: clear to auscultation bilaterally. Absent: rhonchi, wheezes - Cardiovascular Cardiovascular exam: Present: regular rate and rhythm - GI/Abdominal GI/Abdominal exam: Present: normal bowel sounds, soft. Absent: tenderness, rebound - Extremities Exam Extremities exam: Present: normal inspection - Back Exam Back exam: Present: normal inspection - Neurological Exam Neurological exam: Present: alert, oriented X3 - Psychiatric Psychiatric exam: Present: normal affect, normal mood - Skin Skin exam: Present: warm, intact Results - Labs CBC & BMP: 04/30/17 05:33 05/01/17 05:46
--- NOTE | 2017-05-01 16:10 | Pulmonology Progress Note ---
Pulmonary - PN: Subj Interval history: The patient is an 81-year-old white man that has a history of coronary artery disease with previous bypass surgery. He has had peripheral vascular disease and is a bilateral amputee. He does have a history of COPD and came in with some shortness of breath and congestion. He did have a mild cough. He was admitted for possible pneumonia. He has been feeling much better over the weekend and was moved to a regular room. He says he is not having any chest pain or shortness of breath now. He feels like his cough and congestion are better. He has been tolerating his medicines fairly well. His chest x-ray is clear. Exam (Progress Note) - Constitutional Vitals: Period Temp Pulse Resp BP Sys/Hernández Pulse Ox Last 24 Hr 96.6 F-98.4 F 58-88 18-20 110-127/51-68 93-100 General appearance: normal weight, no acute distress (He looks comfortable lying in bed.) - Head Head exam: Present: normal inspection, normocephalic - Eye Eye exam: Present: EOMI. Absent: scleral icterus Pupils: Present: ISIDRA - ENT ENT exam: Present: normal exam - Neck Neck exam: Present: normal inspection. Absent: lymphadenopathy, thyromegaly - Respiratory Respiratory exam: Present: clear to auscultation bilaterally. Absent: rhonchi, wheezes - Cardiovascular Cardiovascular exam: Present: regular rate and rhythm. Absent: gallop, systolic murmur - GI/Abdominal GI/Abdominal exam: Present: normal bowel sounds, soft. Absent: organomegaly, tenderness - Extremities Exam Extremities exam: Present: other (He has bilateral BKA's.). Absent: edema - Neurological Exam Neurological exam: Present: alert, oriented X3, CN II-XII intact - Psychiatric Psychiatric exam: Present: normal affect, normal mood - Skin Skin exam: Present: warm, dry Results - Labs CBC & BMP: 04/30/17 05:33 05/01/17 05:46 - Diagnostic Findings Procedure: Chest x-ray: image reviewed by me, report reviewed by me (Chest x- ray is unremarkable with no infiltrates.) Assessment and Plan (1) Heart failure, systolic Status: Chronic Assessment and plan: The patient has an ischemic cardiomyopathy and was felt to have some mild heart failure when he came in. He is doing much better now his respiratory status is stable. Current Visit: No (2) Diabetic vasculopathy Status: Acute Assessment and plan: He has had severe peripheral vascular disease and has had bilateral BKA's Current Visit: No (3) Below knee amputation status Status: Acute Assessment and plan: The patient has bilateral amputations. He has prostheses and is trying to ambulate some. Current Visit: No (4) Ischemic cardiomyopathy Status: Acute Assessment and plan: Patient has had previous bypass surgery and has an ejection fraction of about 40 %. He is stable now with no signs of heart failure. Current Visit: No (5) COPD exacerbation Status: Acute Assessment and plan: The patient has a component of COPD but is not wheezing now. He feels like his breathing is better. He will continue with bronchodilator therapy. Current Visit: Yes (6) Pneumonia Status: Acute Assessment and plan: His blood cultures have no growth and his x-ray is better. He can probably go home tomorrow. Current Visit: Yes (7) CHF (congestive heart failure) Status: Acute Assessment and plan: The patient has been treated for heart failure and is doing better. Current Visit: Yes
[2017-05-01] MEDS: ATORVASTATIN 10 MG TABLET PO SCH (21:37)
[2017-05-01] MEDS: SERTRALINE 50 MG TABLET PO SCH (21:38)
[2017-05-01] MEDS: ENOXAPARIN 40 MG/0.4 ML SYRINGE SUBCUT SCH (21:40)
[2017-05-01] MEDS: LEVOFLOXACIN INJ 750 MG in PREMIX 1 EACH IV SCH (21:40)
[2017-05-02] MEDS: ALBUTEROL/IPRATROPIUM 3 ML NEB RESP TX SCH ×3 (02:42→11:15)
[2017-05-02 07:54] VITALS: BP 121/50
[2017-05-02] MEDS: LEVOFLOXACIN INJ 750 MG in PREMIX 1 EACH IV SCH (08:58)
[2017-05-02] MEDS: INSULIN LISPRO 100 UNIT/ML SUBCUT SCH (08:58)
[2017-05-02] MEDS: ASPIRIN EC 325 MG TABLET PO SCH (08:59)
[2017-05-02] MEDS: predniSONE 20 MG TABLET PO SCH (08:59)
[2017-05-02] MEDS: CARVEDILOL 6.25 MG TABLET PO SCH (08:59)
[2017-05-02] MEDS: MEMANTINE 5 MG TABLET PO SCH (08:59)
[2017-05-02] MEDS: GABAPENTIN 100 MG CAPSULE PO SCH (08:59)
[2017-05-02] MEDS ORDERED: FUROSEMIDE 40 MG TABLET PO SCH (09:00)
--- NOTE | 2017-05-02 09:01 | Pulmonology Progress Note ---
Pulmonary - PN: Subj Interval history: The patient is an 81-year-old white man that has a history of coronary artery disease with previous bypass surgery. He has had peripheral vascular disease and is a bilateral amputee. He does have a history of COPD and came in with some shortness of breath and congestion. He did have a mild cough. He was admitted for possible pneumonia. He has been feeling much better over the weekend and was moved to a regular room. He says he is not having any chest pain or shortness of breath now. He feels like his cough and congestion are better. He has been tolerating his medicines fairly well. He said he slept very well last night and feels much better. He is not coughing or short of breath. He feels like he is breathing much better now. Exam (Progress Note) - Constitutional Vitals: Period Temp Pulse Resp BP Sys/Hernández Pulse Ox Last 24 Hr 96.5 F-98.2 F 71-88 18-20 110-131/50-71 92-100 Exam: General appearance: normal weight, no acute distress (He looks comfortable lying in bed. He does not have any respiratory distress.) - Head Head exam: Present: normal inspection, normocephalic - Eye Eye exam: Present: EOMI. Absent: scleral icterus Pupils: Present: ISIDRA - ENT ENT exam: Present: normal exam - Neck Neck exam: Present: normal inspection. Absent: lymphadenopathy, thyromegaly - Respiratory Respiratory exam: Present: clear to auscultation bilaterally. He is moving air well without any wheezing. - Cardiovascular Cardiovascular exam: Present: regular rate and rhythm. Absent: gallop, systolic murmur - GI/Abdominal GI/Abdominal exam: Present: normal bowel sounds, soft. Absent: organomegaly, tenderness - Extremities Exam Extremities exam: Present: other (He has bilateral BKA's.). Absent: edema - Neurological Exam Neurological exam: Present: alert, oriented X3, CN II-XII intact - Psychiatric Psychiatric exam: Present: normal affect, normal mood - Skin Results - Labs CBC & BMP: 04/30/17 05:33 05/01/17 05:46 - Diagnostic Findings Procedure: Chest x-ray: image reviewed by me, report reviewed by me (Recent chest x-ray looked clear.) Assessment and Plan (1) Heart failure, systolic Status: Chronic Assessment and plan: The patient has an ischemic cardiomyopathy and was felt to have some mild heart failure when he came in. He is doing much better now and his respiratory status is stable. He does not appear to be in heart failure now. Current Visit: No (2) Diabetic vasculopathy Status: Acute Assessment and plan: He has had severe peripheral vascular disease and has had bilateral BKA's Current Visit: No (3) Below knee amputation status Status: Acute Assessment and plan: The patient has bilateral amputations. He has prostheses and is trying to ambulate some. He says he gets really in a wheelchair at the senior living. Current Visit: No (4) Ischemic cardiomyopathy Status: Acute Assessment and plan: Patient has had previous bypass surgery and has an ejection fraction of about 40 %. He is stable now with no signs of heart failure. Current Visit: No (5) COPD exacerbation Status: Acute Assessment and plan: The patient has a component of COPD but is not wheezing now. He feels like his breathing is better. He will continue with bronchodilator therapy. He feels like he is close to his baseline. Current Visit: Yes (6) Pneumonia Status: Acute Assessment and plan: His blood cultures have no growth and his x-ray is better. He can go back to the senior living at any time. Current Visit: Yes (7) CHF (congestive heart failure) Status: Acute Assessment and plan: The patient has been treated for heart failure and is doing better. Current Visit: Yes
--- NOTE | 2017-05-02 10:44 | Discharge Summary ---
Hospital Course - Hospital Course Hospital Course: Mr. Garcai is a 81 year old male brought to ED by EMS from [facility] for further evaluation of severe SOB beginning today. He was seen at [facility] this morning for SOB and sent back to the nursing. Chest CT from [facility] shows ground glass appearance suggestive of an infection bilateral in the upper lobes. Also shows subsegmental bronchi of the lower lobes demonstrate wall thickening and areas of mucous plugging which are more prevalent on the right. Patient also has small bilateral pleural effusions. Patient is wheezing and has received a breathing treatment and lasix in the ER. EMS notes his BP improved from 234/110 and tachycardic in 120s to 160/60 and 97 O2 sat of 97 on 2L. He was admitted to the hospitalist service for acute respiratory failure secondary to COPD exacerbation and pneumonia of both upper lungs. He was started on IV lasix, duonebs, steroids and levaquin. Pulmonary was consulted due to CT with concern for mucus plugging. Patient improved on this regimen, a bronchoscopy was not needed. He has now reached maximal benefit of inpatient stay and will be discharged back to the detention. - Time spent with patient Time with patient DS: Greater than 30 minutes (35) Diagnosis - Discharge Diagnosis (1) COPD exacerbation Status: Resolved (2) Pneumonia of both upper lobes Status: Resolved (3) SOB (shortness of breath) Status: Resolved (4) CHF (congestive heart failure) Status: Chronic Discharge Plan - Discharge Data Disposition: Disch To Home/Self Care Condition at Discharge: Stable Discharge Diet: diabetic diet, heart healthy Activity: resume usual activities as tolerated Hygiene: no restrictions Weight Bearing at Discharge: weight bear as tolerated Contact your physician if you experience:: fever over 101, Shortness of breath - Discharge Medications New Carvedilol [Coreg] 6.25 mg PO BID #60 tablet predniSONE TAB [PredniSONE] 10 mg PO DAILY #7 tablet Continue Metformin HCl [Metformin HCl ER] 1,000 mg PO BIDAC Sertraline [Zoloft] 50 mg PO BEDTIME tablet Aspirin [Ecotrin] 325 mg PO DAILY #1 tablet. Nitroglycerin [Nitroglycerin SL Tab] 0.4 mg SL PRN PRN #25 tab.subl PRN Reason: Chest Pain Multivitamin [Multivitamins] 1 tablet PO DAILY Potassium Chloride Cap/Tab [K Dur] 20 meq PO DAILY Furosemide Tab [Lasix Tab] 40 mg PO DAILY Clopidogrel [Plavix] 75 mg PO QOTHER DAY Acetaminophen Tab [Tylenol Tab] 1,000 mg PO Q4H Albuterol Neb [Proventil Neb] 2.5 mg RESP TX Q12H PRN PRN Reason: Shortness Of Breath/Wheezing Ascorbic Acid 500 mg PO DAILY Gabapentin 100 mg PO TID guaiFENesin LIQUID [Robitussin] 10 ml PO Q4H PRN PRN Reason: Cough Insulin Glargine [Lantus] 36 unit SUBCUT 0600 Magnesium Hydroxide Susp [Milk of Magnesia] 30 ml PO DAILY PRN PRN Reason: Constipation Memantine [Namenda] 5 mg PO BID Acetaminophen [Acetaminophen ER Tab] 650 mg PO TID Atorvastatin [Lipitor] 10 mg PO BEDTIME HYDROcodone/ACETAMIN 5-325 [[place] 5-325] 1 tablet PO Q4H PRN PRN Reason: Pain Moderate (4-7) Discontinued Carvedilol [Coreg] 3.125 mg PO 0800,1700 Captopril [Captopril] 6.25 mg PO BID - Follow Up or Referral - Forms/Instructions Exam - Constitutional Vitals: Period Temp Pulse Resp BP Sys/Hernández Pulse Ox Last 24 Hr 96.5 F-98.2 F 71-88 18-20 110-131/50-71 92-100 General appearance: over weight - Head Head exam: Present: normocephalic, atraumatic - Eye Eye exam: Present: EOMI Pupils: Present: ISIDRA - ENT ENT exam: Present: normal exam - Neck Neck exam: Present: normal inspection - Respiratory Respiratory exam: Present: clear to auscultation bilaterally. Absent: wheezes - Cardiovascular Cardiovascular exam: Present: regular rate and rhythm - GI/Abdominal GI/Abdominal exam: Present: normal bowel sounds, soft. Absent: tenderness, rebound - Extremities Exam Extremities exam: Present: normal inspection - Back Exam Back exam: Present: normal inspection - Neurological Exam Neurological exam: Present: alert, oriented X3 - Psychiatric Psychiatric exam: Present: normal affect, normal mood - Skin Skin exam: Present: warm, intact Discharge Results Procedures and tests throughout hospitalization: Pending Orders 04/27/17 21:45 Blood Culture Stat Labs on day of discharge: Labs from last 24 hours 05/02/17 05/02/17 05/01/17 07:27 05:54 20:34 POC Glucose 273 H 286 H 322 H 05/01/17 05/01/17 15:29 11:46 POC Glucose 357 H 249 H Preliminary micro results at discharge 04/27/17 21:45 Blood Culture - Preliminary Blood No growth at 3 days 04/27/17 21:45 Blood Culture - Preliminary Blood No growth at 3 days DS: Provider Date of admission: 04/27/17 20:40 Primary care physician: . No PCP Attending physician on admission: Luis Angel Conley MD Consults: 04/27/17 21:32 Consult to Case Mgmt/Social Srvs [CONS] Routine Reason for Case Mgmt/Social Srvs: Discharge Planning Consult to Physician [CONS] Routine Comment: bilateral mucous plugs on chest ct Consulting Provider: Xavier Akers Discharging clinician: Isiah Ovalles MD
== END 2017-05-02 11:58 | DRG 291 ==
LOC: EDUNIT# → N.ED 19:25 → SUATTDRO 20:40 → N.EDINP 20:40 → N.CC 21:05 → N.2E 04-28 15:11
PROVIDERS: ADMIT Internal Medicine; ATTEND Internal Medicine

== ENCOUNTER 2017-05-17 21:27 | Inpatient (IN) ==
--- NOTE | 2017-05-17 22:10 | Emergency Department Note ---
IRosalia Mantricia, am scribing for, and in the presence of, Summer Gloria DO 21:54. IFaizan Debra, DO, personally performed the services described in this documentation, ascribed by Mansoor Lindsey in my presence, and it is both accurate and complete . Arrival - Arrival Chief Complaint: Shortness of Breath Stated Complaint: SOB ED Nursing Triage Note: Patient stated that he started getting SOB around 0 this afternoon. He was seen in [facility] a week ago for similar complaints, and stated that they pulled a mucus plug from his lungs. Mode of Arrival: Stretcher Limitations: No Limitations Source: Patient Time Seen by Provider: 05/17/17 21:51 - History of Present Illness HPI Narrative: Pt is an 81 y/o white male arriving to ED by EMS with c/o SOB that onset 1939 today. Pt reports that he became very SOB and diaphoretic today and started to vomited. reports that she was visiting pt at [facility] when he experienced his episode. He denies having any chest pain with the SOB. Family reports that pt was admitted to CCU about 3 weeks ago and was Dx with CHF and pneumonia. He states that he "lost his legs" due to his DM. No other complaints were reported to ED. Onset (ago): hour(s) Consistency: constant Severity: moderate Allergies/Adverse Reactions: Allergies Allergy/AdvReac Type Severity Reaction Status Date / Time Penicillins Allergy Mild Swelling Verified 07/01/15 09:42 of Lip/Tongue/Throat lorazepam [From Ativan] AdvReac Mild Hallucinati Verified 05/01/17 07:47 ng Home Medications: Home Medications Medication Instructions Recorded Confirmed Type Metformin HCl [Metformin HCl ER] 1,000 mg PO BIDAC 03/04/15 04/27/17 History Aspirin [Ecotrin] 325 mg PO DAILY #1 tablet. 03/26/15 04/27/17 Rx Nitroglycerin [Nitroglycerin SL 0.4 mg SL PRN PRN #25 tab.subl 03/26/15 Rx Tab] Sertraline [Zoloft] 50 mg PO BEDTIME tablet 03/26/15 04/27/17 Rx Multivitamin [Multivitamins] 1 tablet PO DAILY 04/13/15 04/27/17 History Furosemide Tab [Lasix Tab] 40 mg PO DAILY 05/14/15 04/27/17 History Potassium Chloride Cap/Tab [K Dur] 20 meq PO DAILY 05/14/15 04/27/17 History Clopidogrel [Plavix] 75 mg PO QOTHER DAY 06/26/15 04/27/17 History Acetaminophen Tab [Tylenol Tab] 1,000 mg PO Q4H 04/27/17 04/27/17 History Acetaminophen [Acetaminophen ER 650 mg PO TID 04/27/17 04/27/17 History Tab] Albuterol Neb [Proventil Neb] 2.5 mg RESP TX Q12H PRN 04/27/17 04/27/17 History Ascorbic Acid 500 mg PO DAILY 04/27/17 04/27/17 History Atorvastatin [Lipitor] 10 mg PO BEDTIME 04/27/17 04/27/17 History Gabapentin 100 mg PO TID 04/27/17 04/27/17 History HYDROcodone/ACETAMIN 5-325 [[place] 1 tablet PO Q4H PRN 04/27/17 04/27/17 History 5-325] Insulin Glargine [Lantus] 36 unit SUBCUT 0600 04/27/17 04/27/17 History Magnesium Hydroxide Susp [Milk of 30 ml PO DAILY PRN 04/27/17 04/27/17 History Magnesia] Memantine [Namenda] 5 mg PO BID 04/27/17 04/27/17 History guaiFENesin LIQUID [Robitussin] 10 ml PO Q4H PRN 04/27/17 04/27/17 History Carvedilol [Coreg] 6.25 mg PO BID #60 tablet 05/02/17 Rx predniSONE TAB [PredniSONE] 10 mg PO DAILY #7 tablet 05/02/17 Rx Review of System - Review of System 12 point system: reviewed and no additional remarkable complaints except as stated - Review of System Constitutional: Absent: chills, diaphoresis, fever Respiratory: Present: other (SOB). Absent: cough Cardiovascular: Absent: chest pain Gastrointestinal: Absent: abdominal pain, nausea, vomiting, diarrhea Medical,Surgical,& Family Hx - Medical History Cardio: History of: CHF, CAD, Hypertension, [place] (02/24/2015), Cardiovascular Problems Neurology: History of: Cerebrovascular Accident (a year or two ago) No history of: Seizures HEENT: History of: Dental Problems (upper denture) Endocrine: History of: Diabetes Mellitus (NIDDM) (takes metformin and glipizide. ) Respiratory: History of: Pneumonia (02/2015) Genitourinary: History of: Prostate Problems Musculoskeletal: History of: Amputation (bilat below knee amputations), Musculoskeletal Problems Reproductive: Reports: Reproductive Cancer (prostate cancer) Other: History of: Cancer (prostate cancer), MRSA (2014) - Surgical History Cardiac Surgeries: Sugical HX of: Cardiac Catheterization, Cardiac Surgery (2015 ) Neurologic Surgeries: Patient denies: Neurologic Surgery Reproductive Surgeries: Surgical HX of;: Genitourinary Surgery, Prostate Surgery (2010 prostatectomy) Orthopedic Surgeries: Surgical HX of;: Orthopedic Surgery (Right knee surgery x 2) - Family History Family History: Reports;: Family Stroke (dad age 59) Comment Only: Family Diabetes (both maternal and paternal Gparents) - Social History Smoking Status: Former smoker Exam Vital Signs: Vital Signs Temperature 98.2 F 05/17/17 21:40 Pulse Rate 95 H 05/17/17 21:40 Respiratory Rate 21 05/17/17 21:40 Blood Pressure 143/65 05/17/17 21:40 O2 Sat by Pulse Oximetry 88 L 05/17/17 21:40 - General General appearance: alert, in no apparent distress - Head Head exam: Present: atraumatic, normocephalic - Eye Eye exam: Present: normal appearance, PERRL, EOMI - ENT ENT exam: Present: normal exam - Neck Neck exam: Present: normal inspection - Chest Chest inspection: Present: normal inspection, other (scar consistent with prior CABG) - Respiratory Respiratory exam: Present: rales (left) - Cardiovascular Cardiovascular exam: Present: regular rate, normal rhythm, normal heart sounds - Abdominal Exam Abdominal exam: Present: soft. Absent: distention, tenderness, guarding, rebound - Extremities Exam Extremities exam: Present: normal inspection, other (bilat BKA) - Back Exam Back exam: Present: normal inspection - Neurological Exam Neurological exam: Present: alert, oriented X3, CN II-XII intact - Psychiatric Psychiatric exam: Present: normal affect, normal mood - Skin Skin exam: Present: warm, dry, intact, normal color Results - Labs CBC & BMP: 05/17/17 22:17 05/17/17 22:17 Lab Results: I have reviewed the patients labs Labs: Laboratory Tests 05/17/17 05/17/17 05/17/17 22:17 22:17 22:17 WBC 15.3 H Hgb 12.1 L Hct 36.6 L MCV 85.9 L MPV 9.5 L Neut % (Auto) 86.5 H Lymph % (Auto) 7.6 L Neut # (Auto) 13.2 H Lymph # (Auto) 1.2 L Sodium 134 L BUN/Creatinine Ratio 22.00 H Glucose 287 H Troponin I 0.063 H B-Natriuretic Peptide 1048 H Albumin 3.1 L Globulin 3.6 H Albumin/Globulin Ratio 0.8 L
[2017-05-17 23:22] LABS: Basophils # 0.1 10*3/uL (0.0-0.2); Basophils % 0.4 % (0.0-0.8); Eosinophils % 0.1 % (0.00-10.9); Hematocrit 36.6 VOL% (42.0-52.0); Hemoglobin 12.1 GM/DL (14.0-18.0); Immature Granulocytes % 0.7 %; Lymphocytes # 1.2 10*3/uL (1.4-4.0); Lymphocytes % 7.6 % (21.2-54.2); Mean Corpuscular HGB Conc 33.1 GM/DL (32-36); Mean Corpuscular Hemoglobin 28 PG (27-34); Mean Corpuscular Volume 85.9 FL (87-102); Mean Platelet Volume 9.5 FL (9.6-12.0); Monocytes # 0.7 10*3/uL (0.11-0.8); Monocytes % 4.7 % (1.7-12.7); Neutrophils # 13.2 10*3/uL (1.4-7.4); Neutrophils % 86.5 % (38.7-73.9); Platelet Count 161 T/CUMM (130-400); Red Blood Count 4.26 MC/CUMM (3.8-5.5); Red Cell Distribution Width 13.4 % (9.3-17.3); White Blood Count 15.3 T/CUMM (4-12)
[2017-05-17 23:38] LABS: PT Patient Result 10.8 SECS; Partial Thromboplastin Time 23.7 SECS (0-40)
[2017-05-17 23:42] LABS: Alanine Aminotransferase 22 U/L (16-61); Albumin 3.1 G/DL (3.4-5.0); Alkaline Phosphatase 75 U/L (45-117); Aspartate Amino Transferase 13 U/L (0-37); Bilirubin,Total < 0.39 MG/DL (0.2-1.0); Blood Urea Nitrogen 16 MG/DL (7-18); Total Protein 6.7 G/DL (6.4-8.3)
[2017-05-17 23:43] LABS: Glucose 287 MG/DL (74-106); Osmolality,Calculated 278.2 MOS/KG (273-304); Potassium 4.2 MMOL/L (3.5-5.1); Sodium 134 MMOL/L (136-145)
[2017-05-17 23:45] LABS: Troponin I Only 0.063 NG/ML (0.00-0.045)
[2017-05-18] MEDS ORDERED: FUROSEMIDE 40 MG/4 ML VIAL IV STA (00:20)
[2017-05-18] MEDS ORDERED: FUROSEMIDE 40 MG/4 ML VIAL ONE (00:34)
[2017-05-18] MEDS ORDERED: GLUCAGON 1 MG VIAL IM PRN (01:25)
[2017-05-18] MEDS ORDERED: DEXTROSE 50% 25 GM/50 ML SYRINGE IV PRN (01:25)
[2017-05-18] MEDS ORDERED: ACETAMINOPHEN 325 MG TABLET PO PRN (01:25)
--- NOTE | 2017-05-18 01:29 | Hospitalist History & Physical ---
<Amanda Vega - Last Filed: 05/18/17 04:06> Assessment and Plan - Time spent with patient Time spent with patient: Greater than 30 minutes (1) Pneumonia Status: Acute Assessment and plan: Admit to hospitalist services. O2 per unit protocol. Vancomycin 1 gm IV BID. Levaquin 750 mg IV daily. DuoNebs Q4 hours PRN. Recheck CBC in am. Current Visit: Yes (2) Sepsis Status: Acute Assessment and plan: WBC 15.3, heart rate 95, RLL pneumonia. BP stable. Holding fluids for now due to CHF exacerbation also on this admission. Antibiotics as above for pneumonia. Obtain blood cultures before antibiotics, follow. Lactic acid. Current Visit: Yes (3) SOB (shortness of breath) Status: Acute Assessment and plan: As above. Current Visit: Yes (4) CHF exacerbation Status: Acute Assessment and plan: Acute on chronic. BNP in ED was 1048. Troponin was 0.063. Lasix 80 mg IV given in ED. Lasix 40 mg IV BID. Continue home BP meds. I/Os Daily weight. Current Visit: Yes (5) Diabetes Status: Chronic Assessment and plan: Accuchecks ACHS. Continue home dose of Lantus. Continue home dose of Metformin. Sliding scale insulin with humolog. ADA diet. Current Visit: Yes Qualifiers: Diabetes mellitus type: type 2 Diabetes mellitus complication status: with circulatory complication Diabetes mellitus complication detail: with other circulatory complications (6) Hypertension Status: Chronic Assessment and plan: Continue home medications. Monitor. Current Visit: Yes (7) DVT prophylaxis Status: Acute Assessment and plan: Lovenox 40 mg SQ daily. Current Visit: Yes History of Present Illness Chief complaint: SOB History of present illness: Mr. Garcia is a 81 year old male with a past history of CHF, PR, HTN, DM, CVA , dementia, prostate cancer, and bilateral BKAs who was brought to the ED tonight by EMS with complaints of shortness of breath x 2 days with some associate coughing. He denies chest pain, N/V/D, dizziness, syncope, and fever. His work up in the ED was significant for WBCs 15.3, troponin 0.063, BNP 1048, and a RLL pneumonia on CXR. Additionally, his heart rate was 95 and his O2 sats were 88% on RA. He is mildly confused and questioning during the exam was difficult. No family was present at the time of the exam. Hospitalist services were consulted, and the patient will be admitted for further evaluation and treatment. Home Medications Medication Instructions Recorded Confirmed Type Metformin HCl [Metformin HCl ER] 1,000 mg PO BIDAC 03/04/15 05/18/17 History Aspirin [Ecotrin] 325 mg PO DAILY #1 tablet.dr 03/26/15 05/18/17 Rx Nitroglycerin [Nitroglycerin SL 0.4 mg SL PRN PRN #25 tab.subl 03/26/15 Rx Tab] Sertraline [Zoloft] 50 mg PO BEDTIME tablet 03/26/15 05/18/17 Rx Multivitamin [Multivitamins] 1 tablet PO DAILY 04/13/15 05/18/17 History Furosemide Tab [Lasix Tab] 40 mg PO DAILY 05/14/15 05/18/17 History Potassium Chloride Cap/Tab [K Dur] 20 meq PO DAILY 05/14/15 05/18/17 History Clopidogrel [Plavix] 75 mg PO QOTHER DAY 06/26/15 05/18/17 History Acetaminophen Tab [Tylenol Tab] 1,000 mg PO Q4H 04/27/17 05/18/17 History Acetaminophen [Acetaminophen ER 650 mg PO TID 04/27/17 05/18/17 History Tab] Albuterol Neb [Proventil Neb] 2.5 mg RESP TX Q12H PRN 04/27/17 05/18/17 History Ascorbic Acid 500 mg PO DAILY 04/27/17 05/18/17 History Atorvastatin [Lipitor] 10 mg PO BEDTIME 04/27/17 05/18/17 History Gabapentin 100 mg PO TID 04/27/17 05/18/17 History HYDROcodone/ACETAMIN 5-325 [[place] 1 tablet PO Q4H PRN 04/27/17 05/18/17 History 5-325] Insulin Glargine [Lantus] 36 unit SUBCUT 0600 04/27/17 05/18/17 History Magnesium Hydroxide Susp [Milk of 30 ml PO DAILY PRN 04/27/17 05/18/17 History Magnesia] Memantine [Namenda] 5 mg PO BID 04/27/17 05/18/17 History guaiFENesin LIQUID [Robitussin] 10 ml PO Q4H PRN 04/27/17 05/18/17 History Carvedilol [Coreg] 6.25 mg PO BID #60 tablet 05/02/17 05/18/17 Rx predniSONE TAB [PredniSONE] 10 mg PO DAILY #7 tablet 05/02/17 05/18/17 Rx Allergies Allergy/AdvReac Type Severity Reaction Status Date / Time Penicillins Allergy Mild Swelling Verified 07/01/15 09:42 of Lip/Tongue/Throat lorazepam [From Ativan] AdvReac Mild Hallucinati Verified 05/01/17 07:47 ng Medical,Surgical,& Family Hx - Medical History Cardio: History of: CHF, CAD, Hypertension, [place] (02/24/2015), Cardiovascular Problems Neurology: History of: Cerebrovascular Accident (a year or two ago) No history of: Seizures HEENT: History of: Dental Problems (upper denture) Endocrine: History of: Diabetes Mellitus (NIDDM) (takes metformin and glipizide. ) Respiratory: History of: Pneumonia (02/2015) Genitourinary: History of: Prostate Problems Musculoskeletal: History of: Amputation (bilat below knee amputations), Musculoskeletal Problems Reproductive: Reports: Reproductive Cancer (prostate cancer) Other: History of: Cancer (prostate cancer), MRSA (2014) - Surgical History Cardiac Surgeries: Sugical HX of: Cardiac Catheterization, Cardiac Surgery (2015 ) Neurologic Surgeries: Patient denies: Neurologic Surgery Reproductive Surgeries: Surgical HX of;: Genitourinary Surgery, Prostate Surgery (2010 prostatectomy) Orthopedic Surgeries: Surgical HX of;: Orthopedic Surgery (Bilateral BKA) - Family History Family History: Reports;: Family Diabetes (both maternal and paternal Gparents) , Family Heart Disease, Family Hypertension, Family Stroke (dad age 59) - Social History Smoking Status: Former smoker Have you smoked in the last 12 months: No Frequency of Alcohol Use: None Type of Drug Use: None Marital Status: Lives With:: Spouse Functional capacity: wheelchair bound - Constitutional Constitutional: Present: lethargy. Absent: chills, fever(s), weakness - EENT Eyes: Absent: blurry vision, diplopia, loss of vision Ears: Absent: decreased hearing, ear discharge, ear pain Nose, mouth and throat: Absent: headache(s), nasal congestion, sore throat - Cardiovascular Cardiovascular: Present: dyspnea. Absent: chest pain at rest, chest pain with activity, edema, palpitations - Respiratory Respiratory: Present: cough, dyspnea, wheezing - Gastrointestinal Gastrointestinal: Absent: abdominal pain, constipation, diarrhea, nausea, vomiting - Genitourinary Genitourinary: Absent: dysuria, urinary frequency - Musculoskeletal Musculoskeletal: Absent: arthralgias, joint swelling, muscle weakness, myalgias - Neurological Neurological: Present: confusion. Absent: dizziness, numbness, paresthesias, syncope - Psychiatric Psychiatric: Present: confusion - Endocrine Endocrine: Absent: cold intolerance, polydipsia, polyphagia, polyuria - Hematologic/Lymphatic Hematologic/Lymphatic: Absent: easy bleeding, easy bruising Exam - Constitutional Vitals: Period Temp Pulse Resp BP Sys/Hernández Pulse Ox Last 24 Hr 98.2 F-98.2 F 95-95 18-21 143-143/65-65 88 Exam: Constitutional System: Afebrile, lethargic but easily arouses. Confused. Oriented x 2. [No] distress. [No] tremulousness. Head: Normocephalic, atraumatic. Ears, Nose and Throat System: No pain or tenderness. No epistaxis or discharge Eyes System: Pupils equal, round, and reactive. Extraocular muscles intact. Neck: Supple, without adenopathy, [No] jugular venous distention. No thyromegaly , neck mass, or prior surgery apparent. Respiratory System: Faint expiratory wheezing noted anteriorly. Diminished sounds over RLL. Loose-sounding cough noted. Cardiovascular System: Heart with [regular] rate and rhythm. [No] murmur. GI System: Abdomen [soft], [non]tender. [Normo]active bowel sounds present. Musculoskeletal System: Bilateral BKA. Neurological System: [No discernable] sensory deficit. [No] aphasia Psychiatric System: Conversation is [confused.] Results - Labs CBC & BMP: 05/17/17 22:17 05/17/17 22:17 Lab Results: I have reviewed the past 24 hour labs <Matheus Holt - Last Filed: 05/18/17 05:37> Assessment and Plan (1) Pneumonia Status: Acute Assessment and plan: Addendum: Matheus Holt MD: I saw and examined the patient in conjunction with nurse practitioner Amanda Gonzalez. As above the patient complained of shortness breath on admission. He does appear to have some cognitive impairment and I suspect a degree of dementia as he was a very poor historian and somewhat confused. Chest x-ray suggested right lower lobe pneumonia but has not been read yet. On exam he was awake, alert, yet somewhat confused. Lungs were fairly clear. There was some confusion as to whether he lived in a fci. An ER nurse told his he did and the patient is somewhat confused and not reliable. This will need to be sorted out however in the meantime we will add vancomycin to Levaquin to cover possible healthcare associated pneumonia. Continue furosemide for now as started in the ER for possible component of heart failure. BNP was elevated. Will check pro-calcitonin to help gauge severity of his pneumonia and later clearing. Will get 2D echo. Current Visit: Yes History of Present Illness History of present illness: Mr. Garcia is a 81 year old male Exam - Constitutional Vitals: Period Temp Pulse Resp BP Sys/Hernández Pulse Ox Last 24 Hr 97.2 F-98.2 F 83-98 18-24 109-151/51-93 88-100 Results - Labs CBC & BMP: 05/18/17 04:31 05/18/17 04:31
[2017-05-18] MEDS ORDERED: NITROGLYCERIN SL 0.4 MG TABLET SL PRN (02:50)
[2017-05-18] MEDS ORDERED: ALBUTEROL/IPRATROPIUM 3 ML NEB RESP TX PRN (02:55)
[2017-05-18] MEDS: LEVOFLOXACIN INJ 750 MG in PREMIX 1 EACH IV SCH (03:44)
[2017-05-18 04:46] LABS: Basophils # 0.1 10*3/uL (0.0-0.2); Basophils % 0.4 % (0.0-0.8); Eosinophils % 0.1 % (0.00-10.9); Hematocrit 35.4 VOL% (42.0-52.0); Hemoglobin 11.6 GM/DL (14.0-18.0); Immature Granulocytes % 0.7 %; Immature Granulocytes Absolute 0.08 #; Lymphocytes # 1.6 10*3/uL (1.4-4.0); Lymphocytes % 13.3 % (21.2-54.2); Mean Corpuscular HGB Conc 32.8 GM/DL (32-36); Mean Corpuscular Hemoglobin 28 PG (27-34); Mean Corpuscular Volume 85.9 FL (87-102); Mean Platelet Volume 9.5 FL (9.6-12.0); Neutrophils # 9.5 10*3/uL (1.4-7.4); Neutrophils % 77.5 % (38.7-73.9); Platelet Count 159 T/CUMM (130-400); Red Blood Count 4.12 MC/CUMM (3.8-5.5); Red Cell Distribution Width 13.4 % (9.3-17.3); White Blood Count 12.3 T/CUMM (4-12)
[2017-05-18 05:10] LABS: Calcium 8.9 MG/DL (8.5-10.1); Osmolality,Calculated 281.8 MOS/KG (273-304); Potassium 3.9 MMOL/L (3.5-5.1)
--- NOTE | 2017-05-18 06:28 | EKG Report ---
Stationary ECG Study [facility] ER Test Date: 05/17/2017 9:46:11 PM Pat Name: CATHIE PRINGLE Department: Room: 217 Gender: M Saw Tailer: : 1935 Requested by: Summer Gloria Order Number: [id number] Reading MD: VERNELL WILLETT Intervals [place] Rate: 95 P: 80 ND: 217 QRS: 83 QRSD: 88 T: 124 QT: 375 QTc: 428 Interpretive Statements SINUS RHYTHM WITH PROLONGED ND INTERVAL LEFT VENTRICULAR HYPERTROPHY AND ST-T CHANGE POSSIBLE LATERAL MYOCARDIAL INFARCTION, OF INDETERMINATE AGE Electronically Signed On 05-18-17 18:50:21 CDT by VERNELL WILLETT [email or web address]
[2017-05-18] MEDS: VANCOMYCIN INJ 1,000 MG in SODIUM CHLORIDE 0.9% 250 ML IV SCH ×2 (06:30→18:58)
[2017-05-18] MEDS: INSULIN GLARGINE 100 UNIT/ML SUBCUT SCH (06:33)
--- NOTE | 2017-05-18 07:38 | XRay Report ---
Exam: XR chest 1V portable Date: 05/17/2017 10:10 PM Indication: Shortness of breath Comparison: 04/30/2017 Technical: AP Findings: Patchy infiltrate present in the right infrahilar region as well as a small amount of fluid in the right base has some atelectatic change in the left base. Cardiomegaly is present with previous sternotomy. External cardiac leads and oxygen tubing are present. ASVD is present. No pneumothorax Impression: 1. Mild cardiomegaly and previous sternotomy 2. Interstitial infiltrate in the right perihilar region with tiny low volume effusions bilaterally and minimal pleural thickening left base PROCEDURE INTERPRETED AT [facility] DEPARTMENT OF RADIOLOGY Final Report Signed by: Dr. Gilmar James
--- NOTE | 2017-05-18 08:36 | Hospitalist Progress Note ---
Assessment and Plan (1) Diabetes Status: Chronic Assessment and plan: His glucose this morning is 239. He has a previously well known history of type 1 diabetes mellitus. He is presently being treated with glargine insulin 36 units subcutaneous q. at bedtime, metformin 1000 mg p.o. twice daily, and Humalog insulin sliding scale coverage. Current Visit: Yes Qualifiers: Diabetes mellitus type: type 2 Diabetes mellitus complication status: with circulatory complication Diabetes mellitus complication detail: with other circulatory complications (2) Hypertension Status: Chronic Assessment and plan: Today his blood pressure is 122/54, HR 84/min, and temperature 98.1F. I will continue his present antihypertensive medications. Current Visit: Yes Qualifiers: Hypertension type: essential hypertension Qualified Code(s): I10 - Essential (primary) hypertension (3) Heart failure, systolic Status: Chronic Assessment and plan: He does not appear to be in congestive heart failure today. There is a previously well-known history of chronic systolic congestive heart failure. He is chronically treated with carvedilol. He is not presently on an vipul inhibitor. I will begin him on lisinopril. Current Visit: No (4) Ischemic cardiomyopathy Status: Acute Assessment and plan: He has a previously well known history of nonischemic cardiomyopathy. I will obtain an echocardiogram. Current Visit: No (5) Pneumonia Status: Acute Assessment and plan: Chest x-ray yesterday demonstrated a right perihilar infiltrate with small bilateral pleural effusions. He was begun last night on intravenous gentamicin and vancomycin. Current Visit: Yes Qualifiers: Laterality: right Lung location: middle lobe of lung (6) Sepsis Status: Acute Assessment and plan: He appears hemodynamically stable today. He continues on the above antibiotics. Current Visit: Yes Qualifiers: Sepsis type: sepsis due to unspecified organism Qualified Code(s): A41.9 - Sepsis, unspecified organism (7) Elevated troponin Status: Acute Assessment and plan: His troponin yesterday was 0.063 and today 0.095. There is no clinical evidence of acute coronary syndrome. The elevated troponin is most probably secondary to congestive heart failure. I will consult cardiology. Current Visit: Yes Hospitalist: Subjective Interval history: Patient was admitted during the night with pneumonia, sepsis, and acute on chronic congestive heart failure. He was treated last night with intravenous vancomycin, levofloxacin, and furosemide. He states that he is feeling well this morning with no shortness of breath or coughing. Exam - Constitutional Vitals: Period Temp Pulse Resp BP Sys/Hernández Pulse Ox Last 24 Hr 97.2 F-98.2 F 83-98 18-24 109-151/51-93 88-100 General appearance: no acute distress - Head Head exam: Present: normal inspection - Neck Neck exam: Present: normal inspection - Respiratory Respiratory exam: Present: rales (Right basilar.) - Cardiovascular Cardiovascular exam: Present: regular rate and rhythm - GI/Abdominal GI/Abdominal exam: Present: normal bowel sounds, soft, other (Nontender with no palpable masses or hepatosplenomegaly.) - Extremities Exam Extremities exam: Present: normal inspection - Neurological Exam Neurological exam: Present: alert, oriented X3 - Skin Skin exam: Present: normal color, warm, intact Results - Labs CBC & BMP: 05/18/17 04:31 05/18/17 04:31
[2017-05-18] MEDS ORDERED: ALBUTEROL 2.5 MG/3 ML NEB RESP TX PRN (08:44)
[2017-05-18] MEDS ORDERED: guaiFENesin 200 MG/10 ML UDCUP PO PRN (08:44)
[2017-05-18] MEDS ORDERED: MAGNESIUM HYDROXIDE SUSP 30 ML UDCUP PO PRN (08:44)
[2017-05-18] MEDS ORDERED: NON-FORMULARY MEDICATION (Acetaminophen [Acetaminophen Er Tab] 650 MG) PO SCH (09:00)
[2017-05-18] MEDS ORDERED: ACETAMINOPHEN 500 MG TABLET PO SCH (09:00)
[2017-05-18] MEDS ORDERED: LISINOPRIL 5 MG TABLET PO SCH (09:00)
[2017-05-18] MEDS: ASCORBIC ACID 500 MG TABLET PO SCH (11:23)
[2017-05-18] MEDS: MULTIVITAMIN (CENTRUM) TABLET PO SCH (11:23)
[2017-05-18] MEDS: predniSONE 10 MG TABLET PO SCH (11:23)
[2017-05-18] MEDS: GABAPENTIN 100 MG CAPSULE PO SCH ×3 (11:23→21:07)
[2017-05-18] MEDS: ASPIRIN EC 325 MG TABLET PO SCH (11:23)
[2017-05-18] MEDS: FUROSEMIDE 40 MG TABLET PO SCH (11:24)
[2017-05-18] MEDS: POTASSIUM CHLORIDE 20 MEQ TABLET PO SCH (11:24)
[2017-05-18] MEDS: MEMANTINE 5 MG TABLET PO SCH ×2 (11:24→21:07)
[2017-05-18] MEDS: ENOXAPARIN 40 MG/0.4 ML SYRINGE SUBCUT SCH (11:26)
[2017-05-18] MEDS: CLOPIDOGREL 75 MG TABLET PO SCH (11:26)
[2017-05-18] MEDS: CARVEDILOL 6.25 MG TABLET PO SCH ×2 (11:27→21:07)
[2017-05-18] MEDS: FUROSEMIDE 40 MG/4 ML VIAL IV SCH ×2 (11:36→18:50)
[2017-05-18] MEDS: INSULIN LISPRO 100 UNIT/ML SUBCUT SCH ×3 (12:10→21:08)
--- NOTE | 2017-05-18 19:44 | Cardiology Consult Note ---
I, Dannielle Del Angel RN, am scribing for, and in the presence of, Abdulaziz Valentine MD 19:41. Assessment and Plan - Time spent with patient Time spent with patient: Greater than 30 minutes (Due to assessment, planning, documentation, medication review) (1) CHF exacerbation Status: Acute Assessment and plan: Initial assessment and plan May 18, 2017: The patient has evidence of heart failure with pleural effusions, shortness breath, some edema, and elevated BNP. I doubt he has had an ischemic event, but is possible. He is on good evidence-based medications with Lasix, carvedilol, and lisinopril Plan/records: reduce the lisinopril to 2.5 mg /d allow slightly higher blood pressure, so he can tolerate a low-dose of Spironolactone Add a low-dose of Spironolactone Watch renal function and potassium on the spironolactone He had an echo done 04/28 which showed an LVEF of 20-30%, suggesting his heart failure is at least systolic and may be systolic and diastolic Prognosis is guarded his age and being in a correction patient and intermittent confusion If he did have ACS, he would be a medical management candidate--would be a poor candidate for invasive evaluation and therapy Agree with being on aspirin If his lipids are high, we could consider treating with a statin Thank you for allowing me to participate in this patient's care Current Visit: Yes (2) 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 Status: Chronic Current Visit: Yes (3) Elevated troponin Status: Acute Current Visit: Yes (4) Pneumonia Status: Acute Current Visit: Yes Qualifiers: Laterality: right Lung location: middle lobe of lung (5) SOB (shortness of breath) Status: Acute Current Visit: Yes (6) Diabetes Status: Chronic Current Visit: Yes Qualifiers: Diabetes mellitus type: type 2 Diabetes mellitus complication status: with circulatory complication Diabetes mellitus complication detail: with other circulatory complications (7) Hypertension Status: Chronic Current Visit: Yes Qualifiers: Hypertension type: essential hypertension Qualified Code(s): I10 - Essential (primary) hypertension (8) Below knee amputation status Status: Chronic Current Visit: No Qualifiers: Laterality: bilateral Qualified Code(s): Z89.512 - Acquired absence of left leg below knee; Z89.511 - Acquired absence of right leg below knee (9) History of prostate cancer Status: Chronic Current Visit: No History of Present Illness - Data of Consult Patient: known to practice within the last 3 years Consult date: 05/18/17 Requesting Physician: Asif Killian Primary care physician: Mao Pete - Consult Narrative Reason for consult: CHF, elevated troponin History of present illness: Tool Tender: Dr. Valentine PCP: Dr. Pete Mr. aGrcia is a 81 year old male with a history of CHF, CAD, hypertension, OK , CVA, IDDM, and prostate cancer. He last saw Dr. Valentine in the hospital in 2014. February 25, 2015 he presented with anterior ST elevation OK and was found to have three-vessel coronary disease. Percutaneous angioplasty of the anterior descending coronary artery was unsuccessful and he was referred for bypass. March 02, 2015 he underwent CABG with internal mammary graft placed to the anterior descending coronary artery. Echocardiogram done April 28, 2017 with ejection fraction of 20-30%. Other surgical history includes prostate surgery, bilateral knee surgeries and bilateral BKA. Family history is positive for father with stroke and hypertension, mother with cancer, and daughter with diabetes and hypertension. He is a former smoker who quit smoking 3 years ago. He lives in a correction and is wheelchair bound. Mr. aGrcia is somewhat confused and answers most questions with a smile and says "I do not know". His is at bedside but she is limited in assisting with history as he lives in a correction. According to the when she went to see him yesterday he complained of a sore throat and had some nausea and vomiting. After she went home the correction called her and told her they were transferring him to the hospital because his blood pressure was elevated and he was short of breath. He did not have any chest pain. His white count was elevated on admission at 15.3. Troponin has been elevated 0.063 and 0.095 with a negative CK and CK-MB. BNP on admission was 1048, this morning it is 1300. EKG on admission showed sinus rhythm with heart rate of 95 , no evidence of acute OK. Chest x-ray showed mild cardiomegaly and interstitial infiltrate in the right perihilar region. He was given IV Lasix in the emergency department and Lasix 40 mg IV twice daily has been started. He has been started on duo nebs as well as IV antibiotics. This morning he denies any chest pain or shortness of breath. CC: Asif Killian - Home Medications and Allergies Home Medications: Home Medications Medication Instructions Recorded Confirmed Type Metformin HCl [Metformin HCl ER] 1,000 mg PO BIDAC 03/04/15 05/18/17 History Aspirin [Ecotrin] 325 mg PO DAILY #1 tablet. 03/26/15 05/18/17 Rx Nitroglycerin [Nitroglycerin SL 0.4 mg SL PRN PRN #25 tab.subl 03/26/15 Rx Tab] Sertraline [Zoloft] 50 mg PO BEDTIME tablet 03/26/15 05/18/17 Rx Multivitamin [Multivitamins] 1 tablet PO DAILY 04/13/15 05/18/17 History Furosemide Tab [Lasix Tab] 40 mg PO DAILY 05/14/15 05/18/17 History Potassium Chloride Cap/Tab [K Dur] 20 meq PO DAILY 05/14/15 05/18/17 History Clopidogrel [Plavix] 75 mg PO QOTHER DAY 06/26/15 05/18/17 History Acetaminophen Tab [Tylenol Tab] 1,000 mg PO Q4H 04/27/17 05/18/17 History Acetaminophen [Acetaminophen ER 650 mg PO TID 04/27/17 05/18/17 History Tab] Albuterol Neb [Proventil Neb] 2.5 mg RESP TX Q12H PRN 04/27/17 05/18/17 History Ascorbic Acid 500 mg PO DAILY 04/27/17 05/18/17 History Atorvastatin [Lipitor] 10 mg PO BEDTIME 04/27/17 05/18/17 History Gabapentin 100 mg PO TID 04/27/17 05/18/17 History HYDROcodone/ACETAMIN 5-325 [[place] 1 tablet PO Q4H PRN 04/27/17 05/18/17 History 5-325] Insulin Glargine [Lantus] 36 unit SUBCUT 0600 04/27/17 05/18/17 History Magnesium Hydroxide Susp [Milk of 30 ml PO DAILY PRN 04/27/17 05/18/17 History Magnesia] Memantine [Namenda] 5 mg PO BID 04/27/17 05/18/17 History guaiFENesin LIQUID [Robitussin] 10 ml PO Q4H PRN 04/27/17 05/18/17 History Carvedilol [Coreg] 6.25 mg PO BID #60 tablet 05/02/17 05/18/17 Rx predniSONE TAB [PredniSONE] 10 mg PO DAILY #7 tablet 05/02/17 05/18/17 Rx Allergies/Adverse Reactions: Allergies Allergy/AdvReac Type Severity Reaction Status Date / Time Penicillins Allergy Mild Swelling Verified 07/01/15 09:42 of Lip/Tongue/Throat lorazepam [From Ativan] AdvReac Mild Hallucinati Verified 05/01/17 07:47 ng ROS unobtainable: due to mental status Medical,Surgical,& Family Hx - Medical History Cardio: History of: CHF, CAD, Hypertension, OK (02/24/2015), Cardiovascular Problems Neurology: History of: Cerebrovascular Accident (a year or two ago) HEENT: History of: Dental Problems (upper denture) Endocrine: History of: Diabetes Mellitus (IDDM) Respiratory: History of: Pneumonia (02/2015) Musculoskeletal: History of: Amputation (bilat below knee amputations), Musculoskeletal Problems Reproductive: Reports: Reproductive Cancer (prostate cancer) Other: History of: Cancer (prostate cancer), MRSA (2014) - Surgical History Cardiac Surgeries: Sugical HX of: Cardiac Catheterization, Cardiac Surgery ( March 02, 2015) Reproductive Surgeries: Surgical HX of;: Genitourinary Surgery, Prostate Surgery (2009 prostatectomy) Orthopedic Surgeries: Surgical HX of;: Orthopedic Surgery (Bilateral BKA, bilateral knee surgeries) - Family History Family History: Reports;: Family Cancer (Mother), Family Diabetes (Daughter), Family Hypertension (Father, daughter), Family Stroke (dad age 59) - Social History Smoking Status: Former smoker (Quit 3 years ago) Have you smoked in the last 12 months: No Frequency of Alcohol Use: None Type of Drug Use: None Marital Status: Lives With:: In correction Functional capacity: wheelchair bound Physical Examination Vital Signs Temp Pulse Resp BP Pulse Ox 98.2 F 95 H 21 143/65 88 L 05/17/17 21:40 05/17/17 21:40 05/17/17 21:40 05/17/17 21:40 05/17/17 21:40 General: Present: No Apparent Distress, Other (Elderly, ill-appearing) HEENT: Present: PERRL, Mucus Membranes Moist Neck: Present: Supple Neck, Midline Trachea, No Bruit Cardiac: Present: Reg Rate and Rhythm, No Murmur Lungs: Present: Decreased Breath Sounds, No Wheeze, Rales, Rhonchi Neuro: Absent: Resting Tremor, Essential Tremor Abdomen: Present: Soft, Active Bowel Sounds, Non-Tender. Absent: Distended Skin: Present: Bruising. Absent: Rash, Suspicious Lesions Musculoskeletal: Present: Decreased Range of Motion, No Pain Extremities: Present: Normal Upper Extr. Pulses, Other (Bilateral BKA). Absent : Normal Gait Result/EKG - Labs CBC & BMP: 05/18/17 04:31 05/18/17 04:31 Lab Results: I have reviewed the past 24 hour labs Labs: Laboratory Results - last 24 hr 05/17/17 05/17/17 05/17/17 22:17 22:17 22:17 WBC 15.3 H RBC 4.26 Hgb 12.1 L Hct 36.6 L MCV 85.9 L MCH 28 MCHC 33.1 RDW 13.4 Plt Count 161 MPV 9.5 L Neut % (Auto) 86.5 H Lymph % (Auto) 7.6 L Desha % (Auto) 4.7 Eos % (Auto) 0.1 Baso % (Auto) 0.4 Neut # (Auto) 13.2 H Lymph # (Auto) 1.2 L Desha # (Auto) 0.7 Eos # (Auto) 0.0 Baso # (Auto) 0.1 Immature Gran % 0.7 Nucleated RBC % 0.0 Immature Gran # 0.10 Nucleated RBCs # 0.00 Immature Plt Fraction 0.0 INR PT Patient/Control Mix Circ Anticoag PTT Sodium 134 L Potassium 4.2 Chloride 101 Carbon Dioxide 28 Anion Gap 9.2 BUN 16 Creatinine 0.70 GFR Calculation 103 BUN/Creatinine Ratio 22.00 H Glucose 287 H POC Glucose Calculated Osmolality 278.2 Lactic Acid Calcium 9.0 Magnesium Total Bilirubin < 0.39 AST 13 ALT 22 Alkaline Phosphatase 75 Total Creatine Kinase 47 CK-MB (CK-2) 3.0 Troponin I 0.063 H B-Natriuretic Peptide 1048 H Total Protein 6.7 Albumin 3.1 L Globulin 3.6 H Albumin/Globulin Ratio 0.8 L 05/17/17 05/18/17 05/18/17 22:17 02:48 04:30 WBC RBC Hgb Hct MCV MCH MCHC RDW Plt Count MPV Neut % (Auto) Lymph % (Auto) Desha % (Auto) Eos % (Auto) Baso % (Auto) Neut # (Auto) Lymph # (Auto) Desha # (Auto) Eos # (Auto) Baso # (Auto) Immature Gran % Nucleated RBC % Immature Gran # Nucleated RBCs # Immature Plt Fraction INR 1.0 PT Patient/Control Mix 10.8 Circ Anticoag PTT 23.7 D Sodium Potassium Chloride Carbon Dioxide Anion Gap BUN Creatinine GFR Calculation BUN/Creatinine Ratio Glucose POC Glucose 298 H Calculated Osmolality Lactic Acid Calcium Magnesium Total Bilirubin AST ALT Alkaline Phosphatase Total Creatine Kinase CK-MB (CK-2) Troponin I B-Natriuretic Peptide 1300 H Total Protein Albumin Globulin Albumin/Globulin Ratio 05/18/17 05/18/17 05/18/17 04:31 04:31 04:31 WBC 12.3 H RBC 4.12 Hgb 11.6 L Hct 35.4 L MCV 85.9 L MCH 28 MCHC 32.8 RDW 13.4 Plt Count 159 MPV 9.5 L Neut % (Auto) 77.5 H Lymph % (Auto) 13.3 L Desha % (Auto) 8.0 Eos % (Auto) 0.1 Baso % (Auto) 0.4 Neut # (Auto) 9.5 H Lymph # (Auto) 1.6 Desha # (Auto) 1.0 H Eos # (Auto) 0.0 Baso # (Auto) 0.1 Immature Gran % 0.7 Nucleated RBC % 0.0 Immature Gran # 0.08 Nucleated RBCs # 0.00 Immature Plt Fraction 0.0 INR PT Patient/Control Mix Circ Anticoag PTT Sodium 137 Potassium 3.9 Chloride 100 Carbon Dioxide 31 Anion Gap 9.9 BUN 16 Creatinine 0.80 GFR Calculation 99 BUN/Creatinine Ratio 20.00 Glucose 239 H POC Glucose Calculated Osmolality 281.8 Lactic Acid 1.5 Calcium 8.9 Magnesium Total Bilirubin AST ALT Alkaline Phosphatase Total Creatine Kinase CK-MB (CK-2) Troponin I B-Natriuretic Peptide Total Protein Albumin Globulin Albumin/Globulin Ratio 05/18/17 05/18/17 05/18/17 04:31 05:57 06:30 WBC RBC Hgb Hct MCV MCH MCHC RDW Plt Count MPV Neut % (Auto) Lymph % (Auto) Desha % (Auto) Eos % (Auto) Baso % (Auto) Neut # (Auto) Lymph # (Auto) Desha # (Auto) Eos # (Auto) Baso # (Auto) Immature Gran % Nucleated RBC % Immature Gran # Nucleated RBCs # Immature Plt Fraction INR PT Patient/Control Mix Circ Anticoag PTT Sodium Potassium Chloride Carbon Dioxide Anion Gap BUN Creatinine GFR Calculation BUN/Creatinine Ratio Glucose POC Glucose 271 H Calculated Osmolality Lactic Acid Calcium Magnesium 2.2 Total Bilirubin AST ALT Alkaline Phosphatase Total Creatine Kinase CK-MB (CK-2) Troponin I 0.095 H D B-Natriuretic Peptide Total Protein Albumin Globulin Albumin/Globulin Ratio 05/18/17 07:39 WBC RBC Hgb Hct MCV MCH MCHC RDW Plt Count MPV Neut % (Auto) Lymph % (Auto) Desha % (Auto) Eos % (Auto) Baso % (Auto) Neut # (Auto) Lymph # (Auto) Desha # (Auto) Eos # (Auto) Baso # (Auto) Immature Gran % Nucleated RBC % Immature Gran # Nucleated RBCs # Immature Plt Fraction INR PT Patient/Control Mix Circ Anticoag PTT Sodium Potassium Chloride Carbon Dioxide Anion Gap BUN Creatinine GFR Calculation BUN/Creatinine Ratio Glucose POC Glucose 203 H Calculated Osmolality Lactic Acid Calcium Magnesium Total Bilirubin AST ALT Alkaline Phosphatase Total Creatine Kinase CK-MB (CK-2) Troponin I B-Natriuretic Peptide Total Protein Albumin Globulin Albumin/Globulin Ratio - Diagnostic Findings Procedure: Chest x-ray: report reviewed by me - EKG EKG results: interpreted by me EKG shows: sinus rhythm IMeme Dale, MD, personally performed the services described in this documentation, ascribed by Dannielle Del Angel RN in my presence, and it is both accurate and complete 944 .
[2017-05-18] MEDS: SERTRALINE 50 MG TABLET PO SCH (21:07)
[2017-05-18] MEDS: ATORVASTATIN 10 MG TABLET PO SCH (21:07)
[2017-05-18] MEDS: SPIRONOLACTONE 25 MG TABLET PO SCH (21:08)
[2017-05-19] MEDS: INSULIN LISPRO 100 UNIT/ML SUBCUT SCH ×5 (00:05→20:42)
[2017-05-19] MEDS: VANCOMYCIN INJ 1,000 MG in SODIUM CHLORIDE 0.9% 250 ML IV SCH ×2 (06:15→22:45)
[2017-05-19] MEDS: INSULIN GLARGINE 100 UNIT/ML SUBCUT SCH (06:55)
[2017-05-19 06:57] LABS: Calcium 8.9 MG/DL (8.5-10.1)
[2017-05-19 06:58] LABS: Magnesium 2.2 MG/DL (1.8-2.4); Osmolality,Calculated 279.5 MOS/KG (273-304); Potassium 3.9 MMOL/L (3.5-5.1); Risk Ratio 3.33
[2017-05-19 07:13] LABS: Basophils # 0.1 10*3/uL (0.0-0.2); Basophils % 0.4 % (0.0-0.8); Eosinophils % 0.3 % (0.00-10.9); Hematocrit 35.8 VOL% (42.0-52.0); Hemoglobin 11.5 GM/DL (14.0-18.0); Immature Granulocytes % 0.3 %; Immature Granulocytes Absolute 0.03 #; Lymphocytes # 2.4 10*3/uL (1.4-4.0); Lymphocytes % 20.8 % (21.2-54.2); Mean Corpuscular HGB Conc 32.1 GM/DL (32-36); Mean Corpuscular Hemoglobin 28 PG (27-34); Mean Corpuscular Volume 86.1 FL (87-102); Monocytes % 8.5 % (1.7-12.7); Neutrophils # 8.1 10*3/uL (1.4-7.4); Neutrophils % 69.7 % (38.7-73.9); Platelet Count 176 T/CUMM (130-400); Red Blood Count 4.16 MC/CUMM (3.8-5.5); Red Cell Distribution Width 13.9 % (9.3-17.3); White Blood Count 11.6 T/CUMM (4-12)
--- NOTE | 2017-05-19 07:58 | Hospitalist Progress Note ---
Assessment and Plan (1) Diabetes Status: Chronic Assessment and plan: His glucose this morning is 117. He has a previously well known history of type 1 diabetes mellitus. He is presently being treated with glargine insulin 36 units subcutaneous q. at bedtime, metformin 1000 mg p.o. twice daily, and Humalog insulin sliding scale coverage. I will continue this present treatment. Current Visit: Yes Qualifiers: Diabetes mellitus type: type 2 Diabetes mellitus complication status: with circulatory complication Diabetes mellitus complication detail: with other circulatory complications (2) Hypertension Status: Chronic Assessment and plan: Today his blood pressure is 115/50, HR 77/min, and temperature 97.2F. I will continue his present antihypertensive medications. Current Visit: Yes Qualifiers: Hypertension type: essential hypertension Qualified Code(s): I10 - Essential (primary) hypertension (3) Heart failure, systolic Status: Chronic Assessment and plan: He does not appear to be in congestive heart failure today. He has been seen in consultation by cardiology. He had previously been treated with carvedilol. He has been started on lisinopril and spironolactone during this hospitalization.. Current Visit: No (4) Ischemic cardiomyopathy Status: Acute Assessment and plan: He has a previously well known history of nonischemic cardiomyopathy with LVEF 20-25%. Current Visit: No (5) Pneumonia Status: Acute Assessment and plan: Chest x-ray yesterday demonstrated a right perihilar infiltrate with small bilateral pleural effusions. He is being treated with intravenous gentamicin and vancomycin. He appears to be doing well. Current Visit: Yes Qualifiers: Pneumonia type: due to unspecified organism Laterality: right Lung location: middle lobe of lung Qualified Code(s): J18.1 - Lobar pneumonia, unspecified organism (6) Sepsis Status: Acute Assessment and plan: He appears hemodynamically stable today. He continues on the above antibiotics. His sepsis appears to have resolved. Current Visit: Yes Qualifiers: Sepsis type: sepsis due to unspecified organism Qualified Code(s): A41.9 - Sepsis, unspecified organism (7) Elevated troponin Status: Acute Assessment and plan: His troponin yesterday was 0.063 and today 0.095. There is no clinical evidence of acute coronary syndrome. The elevated troponin is most probably secondary to congestive heart failure. Cardiology has agreed that, even if he has experienced an acute coronary syndrome, is not a candidate for invasive treatment. I will continue his present cardiac medications. Current Visit: Yes Hospitalist: Subjective Interval history: Patient is hospitalized with pneumonia, sepsis, and acute on chronic systolic congestive heart failure.He is being treated with intravenous levofloxacin, intravenous vancomycin, and intravenous furosemide. He has been seen in consultation by cardiology who agrees with present management. Patient is doing very well and is eager to go home. I have agreed with him, that if he is doing well, he will be discharged tomorrow on oral antibiotics. Exam - Constitutional Vitals: Period Temp Pulse Resp BP Sys/Hernández Pulse Ox Last 24 Hr 97.2 F-98.4 F 74-86 18-22 94-135/50-76 90-97 General appearance: no acute distress - Head Head exam: Present: normal inspection - Neck Neck exam: Present: normal inspection - Respiratory Respiratory exam: Present: clear to auscultation bilaterally - Cardiovascular Cardiovascular exam: Present: regular rate and rhythm - GI/Abdominal GI/Abdominal exam: Present: normal bowel sounds, soft, other (Nontender with no palpable masses or hepatosplenomegaly.) - Extremities Exam Extremities exam: Present: normal inspection - Neurological Exam Neurological exam: Present: alert, oriented X3 - Skin Skin exam: Present: normal color, warm, intact Results - Labs CBC & BMP: 05/19/17 04:35 05/19/17 04:35
--- NOTE | 2017-05-19 08:40 | EKG Report ---
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
[2017-05-19] MEDS: GABAPENTIN 100 MG CAPSULE PO SCH ×3 (10:17→20:43)
[2017-05-19] MEDS: ENOXAPARIN 40 MG/0.4 ML SYRINGE SUBCUT SCH (10:17)
[2017-05-19] MEDS: POTASSIUM CHLORIDE 20 MEQ TABLET PO SCH (10:18)
[2017-05-19] MEDS: predniSONE 10 MG TABLET PO SCH (10:18)
[2017-05-19] MEDS: SPIRONOLACTONE 25 MG TABLET PO SCH ×2 (10:18→20:43)
[2017-05-19] MEDS: ASPIRIN EC 325 MG TABLET PO SCH (10:18)
[2017-05-19] MEDS: MEMANTINE 5 MG TABLET PO SCH ×2 (10:20→20:43)
[2017-05-19] MEDS: LEVOFLOXACIN INJ 750 MG in PREMIX 1 EACH IV SCH (10:20)
[2017-05-19] MEDS: LISINOPRIL 2.5 MG TABLET PO SCH (10:20)
[2017-05-19] MEDS: MULTIVITAMIN (CENTRUM) TABLET PO SCH (10:21)
[2017-05-19] MEDS: CARVEDILOL 6.25 MG TABLET PO SCH ×2 (10:21→20:43)
[2017-05-19] MEDS: ASCORBIC ACID 500 MG TABLET PO SCH (10:21)
[2017-05-19] MEDS: FUROSEMIDE 40 MG TABLET PO SCH (10:23)
[2017-05-19] MEDS: FUROSEMIDE 40 MG/4 ML VIAL IV SCH ×2 (11:11→17:26)
--- NOTE | 2017-05-19 18:10 | Cardiology Progress Note ---
I, Dannielle Del Angel RN, am scribing for, and in the presence of, Abdulaziz Valentine MD 18:10. Assessment and Plan (1) CHF exacerbation Status: Acute Assessment and plan: Initial assessment and plan May 18, 2017: The patient has evidence of heart failure with pleural effusions, shortness breath, some edema, and elevated BNP. I doubt he has had an ischemic event, but is possible. He is on good evidence-based medications with Lasix, carvedilol, and lisinopril Plan/records: reduce the lisinopril to 2.5 mg /d allow slightly higher blood pressure, so he can tolerate a low-dose of Spironolactone Add a low-dose of Spironolactone Watch renal function and potassium on the spironolactone He had an echo done 04/28 which showed an LVEF of 20-30%, suggesting his heart failure is at least systolic and may be systolic and diastolic Prognosis is guarded his age and being in a snf patient and intermittent confusion If he did have ACS, he would be a medical management candidate--would be a poor candidate for invasive evaluation and therapy Agree with being on aspirin If his lipids are high, we could consider treating with a statin Assessment and plan May 19, 2017: Blood pressure is okay on the reduced dose of lisinopril and the addition of spironolactone Potassium and creatinine are okay on the spironolactone Continue treatment for systolic and diastolic heart failure Recheck electrolytes BUN and creatinine in the a.m. Monitor response I discussed with the patient and his and [id number] about the plans. 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 Status: Chronic Current Visit: Yes (3) Elevated troponin Status: Acute Current Visit: Yes (4) Pneumonia Status: Acute Current Visit: Yes Qualifiers: Pneumonia type: due to unspecified organism Laterality: right Lung location: middle lobe of lung Qualified Code(s): J18.1 - Lobar pneumonia, unspecified organism (5) SOB (shortness of breath) Status: Acute Current Visit: Yes (6) Diabetes Status: Chronic Current Visit: Yes Qualifiers: Diabetes mellitus type: type 2 Diabetes mellitus complication status: with circulatory complication Diabetes mellitus complication detail: with other circulatory complications (7) Hypertension Status: Chronic Current Visit: Yes Qualifiers: Hypertension type: essential hypertension Qualified Code(s): I10 - Essential (primary) hypertension (8) Below knee amputation status Status: Chronic Current Visit: No Qualifiers: Laterality: bilateral Qualified Code(s): Z89.512 - Acquired absence of left leg below knee; Z89.511 - Acquired absence of right leg below knee (9) History of prostate cancer Status: Chronic Current Visit: No Cardiology - PN: Subj Interval history: Mathematical Technician: Dr. Valentine PCP: Dr. Pete Summary: Mr. Garcia is a 81 year old male with a history of CHF, CAD, hypertension, WA, CVA, IDDM, and prostate cancer. He last saw Dr. Valentine in the hospital in 2014. February 25, 2015 he presented with anterior [address] elevation WA and was found to have three-vessel coronary disease. Percutaneous angioplasty of the anterior descending coronary artery was unsuccessful and he was referred for bypass. March 02, 2015 he underwent CABG with internal mammary graft placed to the anterior descending coronary artery. Echocardiogram done April 28, 2017 with ejection fraction of 20-30%. Other surgical history includes prostate surgery, bilateral knee surgeries and bilateral BKA. Family history is positive for father with stroke and hypertension, mother with cancer , and daughter with diabetes and hypertension. He is a former smoker who quit smoking 3 years ago. He lives in a snf and is wheelchair bound. According to the when she went to see him at the snf May 17, he complained of a sore throat and had some nausea and vomiting. After she went home the snf called her and told her they were transferring him to the hospital because his blood pressure was elevated and he was short of breath. He did not have any chest pain. His white count was elevated on admission at 15.3. Troponin has been elevated 0.063 and 0.095 with a negative CK and CK-MB. BNP on admission was 1048, this morning it is 1300. EKG on admission showed sinus rhythm with heart rate of 95, no evidence of acute WA. Chest x-ray showed mild cardiomegaly and interstitial infiltrate in the right perihilar region. He was given IV Lasix in the emergency department and Lasix 40 mg IV twice daily has been started. He has been started on duo nebs as well as IV antibiotics. May 19, 2017: Mr. Garcia is seen housed on 2 weeks this morning. He denies any chest pain or shortness of breath. He is upset and not happy because his IV has beeped during his breakfast. Otherwise he has no complaints. The nurse is in the room while I am seeing him to correct issuea with the IV. Vital signs have been stable. His white count at 11.6. Troponin yesterday afternoon was down to 0.80. Exam (Progress Note) - Constitutional Vitals: Period Temp Pulse Resp BP Sys/Hernández Pulse Ox Last 24 Hr 97.2 F-98.5 F 74-86 14-22 94-135/50-76 90-97 Exam: General: Present: No Apparent Distress, Other (Elderly, ill-appearing) HEENT: Present: PERRL, Mucus Membranes Moist Neck: Present: Supple Neck, Midline Trachea, No Bruit Cardiac: Present: Reg Rate and Rhythm, No Murmur Lungs: Present: Decreased Breath Sounds, No Wheeze, Rales, Rhonchi Neuro: Absent: Resting Tremor, Essential Tremor Abdomen: Present: Soft, Active Bowel Sounds, Non-Tender. Absent: Distended Skin: Present: Bruising. Absent: Rash, Suspicious Lesions Musculoskeletal: Present: Decreased Range of Motion, No Pain Extremities: Present: Normal Upper Extr. Pulses, Other (Bilateral BKA). Absent : Normal Gait Result/EKG - Labs CBC & BMP: 05/19/17 04:35 05/19/17 04:35 Lab Results: I have reviewed the past 24 hour labs Labs: Laboratory Results - last 24 hr 05/18/17 05/18/17 05/18/17 11:37 12:05 18:18 WBC RBC Hgb Hct MCV MCH MCHC RDW Plt Count MPV Neut % (Auto) Lymph % (Auto) [place] % (Auto) Eos % (Auto) Baso % (Auto) Neut # (Auto) Lymph # (Auto) [place] # (Auto) Eos # (Auto) Baso # (Auto) Immature Gran % Nucleated RBC % Immature Gran # Nucleated RBCs # Immature Plt Fraction Sodium Potassium Chloride Carbon Dioxide Anion Gap BUN Creatinine GFR Calculation BUN/Creatinine Ratio Glucose POC Glucose 134 H 145 H Calculated Osmolality Calcium Magnesium Total Bilirubin AST ALT Alkaline Phosphatase Troponin I 0.080 H Total Protein Albumin Globulin Albumin/Globulin Ratio Triglycerides Cholesterol LDL Cholesterol VLDL Cholesterol HDL Cholesterol Heart Disease Risk Ratio 05/18/17 05/19/17 05/19/17 19:13 04:35 04:35 WBC 11.6 RBC 4.16 Hgb 11.5 L Hct 35.8 L MCV 86.1 L MCH 28 MCHC 32.1 RDW 13.9 Plt Count 176 MPV 10.0 Neut % (Auto) 69.7 Lymph % (Auto) 20.8 L [place] % (Auto) 8.5 Eos % (Auto) 0.3 Baso % (Auto) 0.4 Neut # (Auto) 8.1 H Lymph # (Auto) 2.4 [place] # (Auto) 1.0 H Eos # (Auto) 0.0 Baso # (Auto) 0.1 Immature Gran % 0.3 Nucleated RBC % 0.0 Immature Gran # 0.03 Nucleated RBCs # 0.00 Immature Plt Fraction 0.0 Sodium 139 Potassium 3.9 Chloride 103 Carbon Dioxide 29 Anion Gap 10.9 BUN 21 H Creatinine 0.90 GFR Calculation 95 BUN/Creatinine Ratio 23.00 H Glucose 98 POC Glucose 170 H Calculated Osmolality 279.5 Calcium 8.9 Magnesium 2.2 Total Bilirubin 1.00 AST 12 ALT 19 Alkaline Phosphatase 69 Troponin I Total Protein 6.0 L Albumin 3.0 L Globulin 3.0 Albumin/Globulin Ratio 1.0 L Triglycerides Cholesterol LDL Cholesterol VLDL Cholesterol HDL Cholesterol Heart Disease Risk Ratio 05/19/17 05/19/17 05/19/17 04:35 06:11 08:12 WBC RBC Hgb Hct MCV MCH MCHC RDW Plt Count MPV Neut % (Auto) Lymph % (Auto) [place] % (Auto) Eos % (Auto) Baso % (Auto) Neut # (Auto) Lymph # (Auto) [place] # (Auto) Eos # (Auto) Baso # (Auto) Immature Gran % Nucleated RBC % Immature Gran # Nucleated RBCs # Immature Plt Fraction Sodium Potassium Chloride Carbon Dioxide Anion Gap BUN Creatinine GFR Calculation BUN/Creatinine Ratio Glucose POC Glucose 117 H 138 H Calculated Osmolality Calcium Magnesium Total Bilirubin AST ALT Alkaline Phosphatase Troponin I Total Protein Albumin Globulin Albumin/Globulin Ratio Triglycerides 105 Cholesterol 160 LDL Cholesterol 93.0 VLDL Cholesterol 21.0 HDL Cholesterol 48 Heart Disease Risk Ratio 3.33 - Diagnostic Findings Procedure: Chest x-ray: report reviewed by me Rosmery, Abdulaziz Valentine MD, personally performed the services described in this documentation, ascribed by Dannielle Del Angel RN in my presence, and it is both accurate and complete .
[2017-05-19] MEDS: ATORVASTATIN 10 MG TABLET PO SCH (20:43)
[2017-05-19] MEDS: SERTRALINE 50 MG TABLET PO SCH (20:43)
[2017-05-20 05:24] LABS: Basophils # 0.1 10*3/uL (0.0-0.2); Basophils % 0.5 % (0.0-0.8); Eosinophils # 0.1 10*3/uL (0.0-0.87); Eosinophils % 0.9 % (0.00-10.9); Hematocrit 32.6 VOL% (42.0-52.0); Hemoglobin 10.6 GM/DL (14.0-18.0); Immature Granulocytes % 0.4 %; Immature Granulocytes Absolute 0.04 #; Lymphocytes # 2.7 10*3/uL (1.4-4.0); Lymphocytes % 27.7 % (21.2-54.2); Mean Corpuscular HGB Conc 32.5 GM/DL (32-36); Mean Corpuscular Hemoglobin 28 PG (27-34); Mean Corpuscular Volume 86.7 FL (87-102); Mean Platelet Volume 9.8 FL (9.6-12.0); Monocytes # 0.7 10*3/uL (0.11-0.8); Monocytes % 7.6 % (1.7-12.7); Neutrophils # 6.1 10*3/uL (1.4-7.4); Neutrophils % 62.9 % (38.7-73.9); Platelet Count 159 T/CUMM (130-400); Red Blood Count 3.76 MC/CUMM (3.8-5.5); Red Cell Distribution Width 13.7 % (9.3-17.3); White Blood Count 9.7 T/CUMM (4-12)
[2017-05-20] MEDS: INSULIN GLARGINE 100 UNIT/ML SUBCUT SCH (05:55)
[2017-05-20 06:04] LABS: Calcium 8.7 MG/DL (8.5-10.1); Osmolality,Calculated 284.7 MOS/KG (273-304); Potassium 3.6 MMOL/L (3.5-5.1)
--- NOTE | 2017-05-20 08:11 | Discharge Summary ---
Hospital Course - Hospital Course Hospital Course: Mr. Garcia is a 81 year old male with a past history of CHF, IA, HTN, DM, CVA , dementia, prostate cancer, and bilateral BKAs who was brought to the ED tonight by EMS with complaints of shortness of breath x 2 days with some associate coughing. He denies chest pain, N/V/D, dizziness, syncope, and fever. His work up in the ED was significant for WBCs 15.3, troponin 0.063, BNP 1048, and a RLL pneumonia on CXR. Additionally, his heart rate was 95 and his O2 sats were 88% on RA. He is mildly confused and questioning during the exam was difficult. Patient was admitted to the hospital with pneumonia, sepsis, and acute on chronic systolic congestive heart failure. He was treated in the hospital with intravenous furosemide and intravenous levofloxacin and vancomycin.He was seen in consultation by cardiology who concurred with the treatment plan. The patient was begun in hospital on lisinopril and Spironolactone. Patient did very well making a rapid recovery. At the time of his discharge he was comfortable with no complaints and eager to go home. Diagnosis - Discharge Diagnosis (1) Diabetes Status: Chronic (2) Hypertension Status: Chronic (3) Heart failure, systolic Status: Acute (4) Ischemic cardiomyopathy Status: Chronic (5) Pneumonia Status: Acute (6) Sepsis Status: Acute (7) Elevated troponin Status: Acute Discharge Plan - Discharge Data Disposition: Disch To Home/Self Care Condition at Discharge: Stable Discharge Diet: advance to your usual diet Activity: resume usual activities as tolerated - Discharge Medications New Levofloxacin Tab [Levaquin Tab] 500 mg PO DAILY #5 tablet Lisinopril [Prinivil] 2.5 mg PO DAILY #30 tablet Spironolactone [Aldactone] 6.25 mg PO BID #60 tablet Continue Metformin HCl [Metformin HCl ER] 1,000 mg PO BIDAC Sertraline [Zoloft] 50 mg PO BEDTIME tablet Aspirin [Ecotrin] 325 mg PO DAILY #1 tablet. Nitroglycerin [Nitroglycerin SL Tab] 0.4 mg SL PRN PRN #25 tab.subl PRN Reason: Chest Pain Multivitamin [Multivitamins] 1 tablet PO DAILY Potassium Chloride Cap/Tab [K Dur] 20 meq PO DAILY Furosemide Tab [Lasix Tab] 40 mg PO DAILY Clopidogrel [Plavix] 75 mg PO QOTHER DAY Albuterol Neb [Proventil Neb] 2.5 mg RESP TX Q12H PRN PRN Reason: Shortness Of Breath/Wheezing Ascorbic Acid 500 mg PO DAILY Gabapentin 100 mg PO TID guaiFENesin LIQUID [Robitussin] 10 ml PO Q4H PRN PRN Reason: Cough Insulin Glargine [Lantus] 36 unit SUBCUT 0600 Magnesium Hydroxide Susp [Milk of Magnesia] 30 ml PO DAILY PRN PRN Reason: Constipation Memantine [Namenda] 5 mg PO BID Carvedilol [Coreg] 6.25 mg PO BID #60 tablet predniSONE TAB [PredniSONE] 10 mg PO DAILY #7 tablet Acetaminophen [Acetaminophen ER Tab] 650 mg PO TID Atorvastatin [Lipitor] 10 mg PO BEDTIME HYDROcodone/ACETAMIN 5-325 [Viola 5-325] 1 tablet PO Q4H PRN PRN Reason: Pain Moderate (4-7) Discontinued Acetaminophen Tab [Tylenol Tab] 1,000 mg PO Q4H - Follow Up or Referral - Forms/Instructions Exam - Constitutional Vitals: Period Temp Pulse Resp BP Sys/Hernández Pulse Ox Last 24 Hr 96.2 F-99.4 F 77-101 18-22 117-129/58-82 93-97 Discharge Results Procedures and tests throughout hospitalization: Pending Orders 05/18/17 04:31 Blood Culture Stat 05/21/17 04:00 Basic Metabolic Panel IN AM Comp Blood Count Auto Diff IN AM Labs on day of discharge: Labs from last 24 hours 05/20/17 05/20/17 05/20/17 05:55 04:17 04:17 WBC 9.7 RBC 3.76 L Hgb 10.6 L Hct 32.6 L MCV 86.7 L MCH 28 MCHC 32.5 RDW 13.7 Plt Count 159 MPV 9.8 Neut % (Auto) 62.9 Lymph % (Auto) 27.7 [place] % (Auto) 7.6 Eos % (Auto) 0.9 Baso % (Auto) 0.5 Neut # (Auto) 6.1 Lymph # (Auto) 2.7 [place] # (Auto) 0.7 Eos # (Auto) 0.1 Baso # (Auto) 0.1 Immature Gran % 0.4 Nucleated RBC % 0.0 Immature Gran # 0.04 Nucleated RBCs # 0.00 Immature Plt Fraction 0.0 Sodium 138 Potassium 3.6 Chloride 105 Carbon Dioxide 26 Anion Gap 10.6 BUN 31 H D Creatinine 0.80 GFR Calculation 99 BUN/Creatinine Ratio 38.00 H Glucose 148 H POC Glucose 173 H Calculated Osmolality 284.7 Calcium 8.7 Procalcitonin Vancomycin Trough 05/19/17 05/19/17 05/19/17 19:45 18:27 15:28 WBC RBC Hgb Hct MCV MCH MCHC RDW Plt Count MPV Neut % (Auto) Lymph % (Auto) [place] % (Auto) Eos % (Auto) Baso % (Auto) Neut # (Auto) Lymph # (Auto) [place] # (Auto) Eos # (Auto) Baso # (Auto) Immature Gran % Nucleated RBC % Immature Gran # Nucleated RBCs # Immature Plt Fraction Sodium Potassium Chloride Carbon Dioxide Anion Gap BUN Creatinine GFR Calculation BUN/Creatinine Ratio Glucose POC Glucose 180 H 297 H Calculated Osmolality Calcium Procalcitonin Vancomycin Trough 16.3 05/19/17 05/19/17 05/18/17 11:51 08:12 05:57 WBC RBC Hgb Hct MCV MCH MCHC RDW Plt Count MPV Neut % (Auto) Lymph % (Auto) [place] % (Auto) Eos % (Auto) Baso % (Auto) Neut # (Auto) Lymph # (Auto) [place] # (Auto) Eos # (Auto) Baso # (Auto) Immature Gran % Nucleated RBC % Immature Gran # Nucleated RBCs # Immature Plt Fraction Sodium Potassium Chloride Carbon Dioxide Anion Gap BUN Creatinine GFR Calculation BUN/Creatinine Ratio Glucose POC Glucose 244 H 138 H Calculated Osmolality Calcium Procalcitonin 0.13 Vancomycin Trough Preliminary micro results at discharge 05/18/17 04:31 Blood Culture - Preliminary Blood No growth at 1 day 05/18/17 04:31 Blood Culture - Preliminary Blood No growth at 1 day DS: Provider Date of admission: 05/18/17 01:25 Primary care physician: . No PCP Attending physician on admission: Matheus Holt MD Consults: 05/18/17 02:49 Consult to Pharmacy [CONS] Routine Reason for Pharmacy Consult: Dose/Manage Vancomycin 05/18/17 08:47 Consult to Physician [CONS] Routine Comment: CHF, elevated troponins Consulting Provider: Cardiology - [facility] Consult to Specialist Group: Cardiology When should Consulting Provider be notified: Now Person Notified: layla Date Notified: 05/18/17 Time Notified: 09:37 05/20/17 07:18 Consult to Case Mgmt/Social Srvs [CONS] Routine Reason for Case Mgmt/Social Srvs: Discharge Planning Discharging clinician: Asif Killian
[2017-05-20] MEDS: FUROSEMIDE 40 MG/4 ML VIAL IV SCH (08:19)
[2017-05-20] MEDS: LEVOFLOXACIN INJ 750 MG in PREMIX 1 EACH IV SCH (08:45)
[2017-05-20] MEDS: FUROSEMIDE 40 MG TABLET PO SCH (09:00)
--- NOTE | 2017-05-20 09:30 | EKG Report ---
Stationary ECG Study [facility] Test Date: 05/20/2017 9:30:50 AM Pat Name: CATHIE PRINGLE Department: Room: 217 Gender: M Mail Censor: TEREZA : 1935 Requested by: Vernell Valentine Order Number: [id number] Reading MD: VERNELL VALENTINE Intervals [place] Rate: 77 P: 91 NE: 240 QRS: 73 QRSD: 92 T: 139 QT: 403 QTc: 435 Interpretive Statements SINUS RHYTHM WITH PROLONGED NE INTERVAL LEFT VENTRICULAR HYPERTROPHY AND ST-T CHANGE ANTEROSEPTAL MYOCARDIAL INFARCTION, age indeterminate Electronically Signed On 05-20-17 12:21:53 CDT by VERNELL VALENTINE [email or web address]
[2017-05-20] MEDS: INSULIN LISPRO 100 UNIT/ML SUBCUT SCH ×2 (09:43→11:56)
[2017-05-20] MEDS: MULTIVITAMIN (CENTRUM) TABLET PO SCH (09:45)
[2017-05-20] MEDS: LISINOPRIL 2.5 MG TABLET PO SCH (09:45)
[2017-05-20] MEDS: GABAPENTIN 100 MG CAPSULE PO SCH (09:45)
[2017-05-20] MEDS: predniSONE 10 MG TABLET PO SCH (09:45)
[2017-05-20] MEDS: SPIRONOLACTONE 25 MG TABLET PO SCH (09:46)
[2017-05-20] MEDS: CARVEDILOL 6.25 MG TABLET PO SCH (09:46)
[2017-05-20] MEDS: POTASSIUM CHLORIDE 20 MEQ TABLET PO SCH (09:49)
[2017-05-20] MEDS: MEMANTINE 5 MG TABLET PO SCH (09:49)
[2017-05-20] MEDS: ASPIRIN EC 325 MG TABLET PO SCH (09:49)
[2017-05-20] MEDS: ASCORBIC ACID 500 MG TABLET PO SCH (09:50)
[2017-05-20] MEDS: ENOXAPARIN 40 MG/0.4 ML SYRINGE SUBCUT SCH (09:52)
[2017-05-20] MEDS: CLOPIDOGREL 75 MG TABLET PO SCH (10:35)
[2017-05-20] MEDS: VANCOMYCIN INJ 1,000 MG in SODIUM CHLORIDE 0.9% 250 ML IV SCH (10:39)
[2017-05-20 12:22] VITALS: BP 116/52
--- NOTE | 2017-05-20 14:19 | Cardiology Progress Note ---
Assessment and Plan (1) CHF exacerbation Status: Acute Assessment and plan: Initial assessment and plan May 18, 2017: The patient has evidence of heart failure with pleural effusions, shortness breath, some edema, and elevated BNP. I doubt he has had an ischemic event, but is possible. He is on good evidence-based medications with Lasix, carvedilol, and lisinopril Plan/records: reduce the lisinopril to 2.5 mg /d allow slightly higher blood pressure, so he can tolerate a low-dose of Spironolactone Add a low-dose of Spironolactone Watch renal function and potassium on the spironolactone He had an echo done 04/28 which showed an LVEF of 20-30%, suggesting his heart failure is at least systolic and may be systolic and diastolic Prognosis is guarded his age and being in a [facility] patient and intermittent confusion If he did have ACS, he would be a medical management candidate--would be a poor candidate for invasive evaluation and therapy Agree with being on aspirin If his lipids are high, we could consider treating with a statin Assessment and plan May 19, 2017: Blood pressure is okay on the reduced dose of lisinopril and the addition of spironolactone Potassium and creatinine are okay on the spironolactone Continue treatment for systolic and diastolic heart failure Recheck electrolytes BUN and creatinine in the a.m. Monitor response I discussed with the patient and his and [id number] about the plans. They voiced understanding and agree with the plan 05/20/17: Tolerating the low-dose lisinopril and Aldactone well Renal function is good on this combination His pneumonia and sepsis is also treated We will be discharged back to his [facility] care I will not see him routinely but on an as-needed basis. 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 Status: Chronic (3) Elevated troponin Status: Acute (4) Pneumonia Status: Acute Qualifiers: Pneumonia type: due to unspecified organism Laterality: right Lung location: middle lobe of lung Qualified Code(s): J18.1 - Lobar pneumonia, unspecified organism (5) SOB (shortness of breath) Status: Acute (6) Diabetes Status: Chronic Qualifiers: Diabetes mellitus type: type 2 Diabetes mellitus complication status: with circulatory complication Diabetes mellitus complication detail: with other circulatory complications (7) Hypertension Status: Chronic Qualifiers: Hypertension type: essential hypertension Qualified Code(s): I10 - Essential (primary) hypertension (8) Below knee amputation status Status: Chronic Qualifiers: Laterality: bilateral Qualified Code(s): Z89.512 - Acquired absence of left leg below knee; Z89.511 - Acquired absence of right leg below knee (9) History of prostate cancer Status: Chronic Cardiology - PN: Subj Interval history: No chest pain or shortness of breath. He feels better than when he came in the hospital. Exam (Progress Note) - Constitutional Vitals: Period Temp Pulse Resp BP Sys/Hernández Pulse Ox Last 24 Hr 96.2 F-99.4 F 74-101 18-22 116-129/51-66 92-97 Exam: General: Present: No Apparent Distress, Other (Elderly, ill-appearing) HEENT: Present: PERRL, Mucus Membranes Moist Neck: Present: Supple Neck, Midline Trachea, No Bruit Cardiac: Present: Reg Rate and Rhythm, No Murmur Lungs: Present: Decreased Breath Sounds, No Wheeze, Rales, Rhonchi Neuro: Absent: Resting Tremor, Essential Tremor Abdomen: Present: Soft, Active Bowel Sounds, Non-Tender. Absent: Distended Skin: Present: Bruising. Absent: Rash, Suspicious Lesions Musculoskeletal: Present: Decreased Range of Motion, No Pain Extremities: Present: Normal Upper Extr. Pulses, Other (Bilateral BKA). Absent : Normal Gait Result/EKG - Labs CBC & BMP: 05/20/17 04:17 05/20/17 04:17 Labs: Laboratory Results - last 24 hr 05/19/17 05/19/17 05/19/17 15:28 18:27 19:45 WBC RBC Hgb Hct MCV MCH MCHC RDW Plt Count MPV Neut % (Auto) Lymph % (Auto) [place] % (Auto) Eos % (Auto) Baso % (Auto) Neut # (Auto) Lymph # (Auto) Sharp # (Auto) Eos # (Auto) Baso # (Auto) Immature Gran % Nucleated RBC % Immature Gran # Nucleated RBCs # Immature Plt Fraction Sodium Potassium Chloride Carbon Dioxide Anion Gap BUN Creatinine GFR Calculation BUN/Creatinine Ratio Glucose POC Glucose 297 H 180 H Calculated Osmolality Calcium Vancomycin Trough 16.3 05/20/17 05/20/17 05/20/17 04:17 04:17 05:55 WBC 9.7 RBC 3.76 L Hgb 10.6 L Hct 32.6 L MCV 86.7 L MCH 28 MCHC 32.5 RDW 13.7 Plt Count 159 MPV 9.8 Neut % (Auto) 62.9 Lymph % (Auto) 27.7 [place] % (Auto) 7.6 Eos % (Auto) 0.9 Baso % (Auto) 0.5 Neut # (Auto) 6.1 Lymph # (Auto) 2.7 [place] # (Auto) 0.7 Eos # (Auto) 0.1 Baso # (Auto) 0.1 Immature Gran % 0.4 Nucleated RBC % 0.0 Immature Gran # 0.04 Nucleated RBCs # 0.00 Immature Plt Fraction 0.0 Sodium 138 Potassium 3.6 Chloride 105 Carbon Dioxide 26 Anion Gap 10.6 BUN 31 H D Creatinine 0.80 GFR Calculation 99 BUN/Creatinine Ratio 38.00 H Glucose 148 H POC Glucose 173 H Calculated Osmolality 284.7 Calcium 8.7 Vancomycin Trough 05/20/17 05/20/17 07:22 11:04 WBC RBC Hgb Hct MCV MCH MCHC RDW Plt Count MPV Neut % (Auto) Lymph % (Auto) [place] % (Auto) Eos % (Auto) Baso % (Auto) Neut # (Auto) Lymph # (Auto) [place] # (Auto) Eos # (Auto) Baso # (Auto) Immature Gran % Nucleated RBC % Immature Gran # Nucleated RBCs # Immature Plt Fraction Sodium Potassium Chloride Carbon Dioxide Anion Gap BUN Creatinine GFR Calculation BUN/Creatinine Ratio Glucose POC Glucose 175 H 305 H Calculated Osmolality Calcium Vancomycin Trough Specialty Discharge - Follow Up or Referrals Follow up with: Abdulaziz Valentine MD [Physician] - (See me on as as-needed basis. No routine follow-up with me, as he will be seeing his [facility] physician )
== END 2017-05-20 12:10 | DRG 871 ==
LOC: EDUNIT# → EDBD → N.ED 21:27 → N.EDINP 05-18 01:25 → SUATTDRO 05-18 01:25 → N.2E 05-18 02:05
PROVIDERS: ADMIT Family Medicine